=== PATIENT | male | born 1955 | race Caucasian/White ===

== ENCOUNTER → 2018-10-21 15:52 | Outpatient (CLI) | payer BC, SELFPAY ==
--- NOTE | 2018-10-21 16:10 | XR_ITS ---
XR hip LT 2-3V w/pelvis HISTORY: ITS.REASON: MIDLINE LOW BACK PAIN WITH LEFT SIDED SCIATICA ORDERING PHYSICIAN: Yolis Carter APRN PATIENT AGE: 63 years COMPARISON: None FINDINGS: An AP view the pelvis shows mild to moderate osteoarthritic changes of both hips. No fracture or dislocation. No lytic or blastic change. IMPRESSION: Osteoarthritis of the hips
--- NOTE | 2018-10-21 16:10 | XR_ITS ---
EXAM: XR lumbar spine min 4V HISTORY: ITS.REASON: MIDLINE LOW BACK PAIN WITH LEFT SIDED SCIATICA ORDERING PHYSICIAN: Yolis Carter APRN PATIENT AGE: 63 years COMPARISON: None FINDINGS: Normal alignment. No acute fracture or dislocation. There is mild loss of height anteriorly of T12 which may be old. There is degenerative disc disease from T11 to S1 most severe in the lower thoracic and thoracolumbar region. Small anterior osteophytes are present at multiple levels and there is mild facet sclerotic changes at the lumbosacral junction. No lytic or blastic change. IMPRESSION: Degenerative changes as described above. Mild wedging of T12 vertebral body which may be chronic
== END ==
PROVIDERS: PCP Family Medicine; Visit Provider Nurse Practitioner
DX: M54.42 Lumbago with sciatica, left side (principal)
CPT/HCPCS: 72110; 73502

== ENCOUNTER → 2019-11-14 10:40 | Outpatient (CLI) | payer OTHER, SELFPAY ==
--- NOTE | 2019-11-14 10:52 | CT_ITS ---
PROCEDURE: CT ABDOMEN PELVIS WO CON CLINICAL INDICATION: RENAL COLIC Left flank pain and hematuria COMPARISON: No exams were available for comparison TECHNIQUE: Axial images obtained with sagittal and coronal reformats. All CT scans at the facility use one or more dose reduction, viz: automated exposure control, ma/kV adjustment per patient size (including targeted exams where dose is matched to indication, i.e. head), or iterative reconstruction technique. FINDINGS: LOWER THORAX: Coronary artery calcifications are present. Calcified node is present in the right hilum ABDOMEN & PELVIS: There has been a prior cholecystectomy. There are focal low-density changes involving the medial aspect of the left hepatic lobe and may be due to focal fatty infiltration. This area measures approximately 1.3 cm the liver has an otherwise unremarkable appearance. The spleen, and pancreas have an unremarkable appearance. There is mild dilatation of the left renal pelvicaliceal system and left ureter secondary to a 3 mm stone at the left ureterovesical junction. There is mild stranding of the left perinephric and periureteral fat. There is also some stranding of the fat in the lateral conal fascia inferiorly and in the left pelvic region adjacent to the mildly dilated left ureter. There is a 4 cm right renal cyst. In the medial aspect of the left kidney there is a 1.7 cm cyst. The wall is partially calcified. This is an indeterminate lesion of the left kidney. There are no previous studies available for comparison. The adrenal glands are slightly enlarged nonspecific. Unremarkable appendix. There is mild thickening of the descending colon which may be due to nondistention versus colitis. There is diverticulosis of the descending and sigmoid colon but no evidence of diverticulitis. No intestinal obstruction or free air. There is mild kyphosis of the lower thoracic spine with mild osteoarthritis of the hips. Prostate is mildly enlarged at 5 by 3 cm IMPRESSION: 1. 3 mm obstructing stone at the left ureterovesical junction with mild left-sided obstructive uropathy. There is some stranding of the fat in the left lateral conal fascia region and in the left pelvic area possibly related to the obstructing stone. 2. Colonic diverticulosis. There is thickening of the descending and sigmoid colon which may be due to nondistention or colitis. 3. Indeterminate 1.7 cm partially calcified cyst of the left kidney. Suggest follow-up exam with renal protocol without and with contrast to better classify this lesion. There is a benign-appearing cyst of the right kidney. Dictated b Marinelli, Lincoln MD 11/14/2019 11:39 Lincoln Marinelli MD in [place] 11/14/2019 11:39
== END ==
PROVIDERS: PCP Family Medicine; Visit Provider Family Medicine
DX: N23 Unspecified renal colic (principal)
CPT/HCPCS: 74176

== ENCOUNTER → 2019-11-21 10:49 | Outpatient (CLI) | payer OTHER, SELFPAY ==
--- NOTE | 2019-11-21 10:55 | CT_ITS ---
PROCEDURE: CT ABDOMEN PELVIS WO/W CON CLINICAL INDICATION: RENAL CYST Hematuria, complex left renal cyst COMPARISON: CT CT ABDOMEN PELVIS WO CON from 11/14/2019 TECHNIQUE: IV Contrast: 75ML OPTIRAY 350 Oral Contrast None Axial images obtained with sagittal and coronal reformats. All CT scans at the facility use one or more dose reduction, viz: automated exposure control, ma/kV adjustment per patient size (including targeted exams where dose is matched to indication, i.e. head), or iterative reconstruction technique. FINDINGS: LOWER THORAX: Prominent coronary artery calcification is present. There is calcified node in the right hilum. ABDOMEN & PELVIS: Immediate and post enhanced images are obtained of the kidneys. There is a complex left renal cyst containing peripheral slightly coarse calcifications. The cyst measures 1.8 cm and would be classified as a Bosniak 2F minimally complex requiring follow-up. There is no enhancement of the cyst wall and no internal septation. There is a simple appearing cyst involving the lower pole of the right kidney which measures 5.2 cm. No renal or ureteral calculi. No hydronephrosis. The previously noted left UPJ stone is no longer apparent. The stranding of the fat in the lateral conal fascia and in the periureteral region has improved. There is colonic diverticulosis. No evidence of diverticulitis. There is a mild amount of retained colonic feces within the sigmoid and rectal area. Unremarkable appendix. There is mild kyphosis of the lower thoracic spine with degenerative changes in the spine IMPRESSION: 1. Complex left renal cyst containing some coarse peripheral calcification. Bosniak 2 F. Recommend six-month follow-up. 2. Benign-appearing 5.2 cm cyst of the right kidney Bosniak type 1 3. Moderate amount of retained colonic feces with colonic diverticulosis. 4. Left UPJ stone no longer apparent Dictated by: Lincoln Marinelli MD 11/22/2019 10:52 Lincoln Marinelli MD in [facility] 11/22/2019 10:52
[2019-11-21 11:18] LABS: Blood Urea Nitrogen 14 mg/dl (9-20); Estimated Glomerular Filt Rate 114 ml/min (>60); GFR (African American) 138 ML/MIN (>60)
== END ==
PROVIDERS: PCP Family Medicine; Visit Provider Urology
DX: N28.1 Cyst of kidney, acquired (principal)
CPT/HCPCS: 36415; 74178; 82565; 84520; Q9967

== ENCOUNTER → 2019-12-23 07:40 | Outpatient (CLI) | payer OTHER, SELFPAY ==
--- NOTE | 2019-12-23 07:43 | CA_ITS ---
APPROVED REPORT Business Management Professor: STEPHANIE Laterality: Bilateral Study Quality: Good Indications: MELVIN Risk Factors Hypertension: Doppler Spectral Velocity Analysis dICA (R) 118.30/36.90 cm/s dICA (L) 89.40/23.40 cm/s Samy (R) 80.20/26.30 cm/s Samy (L) 105.10/26.10 cm/s pICA (R) 72.00/23.10 cm/s pICA (L) 80.80/20.80 cm/s dCCA (R) 81.00/18.40 cm/s dCCA (L) 92.80/20.00 cm/s pCCA (R) 87.00/16.80 cm/s pCCA (L) 114.90/17.70 cm/s Vert (R) 59.80/11.00 cm/s Vert (L) 63.30/17.60 cm/s ICA/CCA 1.50 ICA/CCA 1.10 Findings The right carotid arterial system appeared to be normal without stenosis of the bulb or internal carotid artery. Duplex evaluation demonstrates stenosis of the left proximal internal carotid artery <20% with PSV <140 cm/sec, EDV <100 cm/sec, and IC/CC Ratio <4.0.Antegrade flow seen bilateral vertebral arteries. Conclusion The right carotid arterial system appeared to be normal without stenosis of the bulb or internal carotid artery. Duplex evaluation demonstrates stenosis of the left proximal internal carotid artery <20% with PSV <140 cm/sec, EDV <100 cm/sec, and IC/CC Ratio <4.0.Antegrade flow seen bilateral vertebral arteries. Electronically signed by : Lincoln Marinelli MD 12/23/2019 15:50:56
== END ==
PROVIDERS: PCP Family Medicine; Visit Provider Nurse Practitioner
DX: Z13.6 Encounter for screening for cardiovascular disorders (principal)
CPT/HCPCS: 93880

== ENCOUNTER → 2020-11-15 14:02 | Outpatient (CLI) | payer OTHER, SELFPAY ==
--- NOTE | 2020-11-15 14:06 | CT_ITS ---
PROCEDURE: CT ABDOMEN PELVIS WO CON CLINICAL INDICATION: ureteral stone/renal cyst COMPARISON: CT CT ABDOMEN PELVIS WO/W CON from 11/21/2019 TECHNIQUE: Axial images obtained with sagittal and coronal reformats. All CT scans at the facility use one or more dose reduction, viz: automated exposure control, ma/kV adjustment per patient size (including targeted exams where dose is matched to indication, i.e. head), or iterative reconstruction technique. FINDINGS: LOWER THORAX: No acute finding ABDOMEN & PELVIS: Prior cholecystectomy. Liver, spleen, and pancreas have an unremarkable appearance. There is mild nodularity of the adrenal glands not significantly changed. 17 mm cyst is present involving the left kidney medially containing some peripheral coarse calcifications not significantly changed. Left renal calcifications are present and felt to represent vascular calcifications. No ureteral calculi evident. No hydronephrosis. 5 cm benign-appearing cyst projects off the lower pole of the right kidney unchanged. No right renal or ureteral calculi. No hydronephrosis. No intestinal obstruction or free air. Unremarkable appendix. There is colonic diverticulosis with no evidence of diverticulitis. Mild prominence of the prostate at 5 x 2.7 cm No pelvic mass or abnormal fluid collection. There is mild kyphosis of the lower thoracic spine. Mild osteoarthritic changes are present involving the hips and spine IMPRESSION: No change with no acute finding. No change partially calcified left renal cyst and benign-appearing 5 cm right renal cyst. No renal or ureteral calculi parent Colonic diverticulosis without diverticulitis Dictated by: Lincoln Marinelli MD 11/15/2020 17:21 Lincoln Marinelli MD in [place] 11/15/2020 17:21
== END ==
PROVIDERS: PCP Family Medicine; Visit Provider Urology
DX: N20.1 Calculus of ureter (principal); N28.1 Cyst of kidney, acquired
CPT/HCPCS: 74176

== ENCOUNTER → 2021-11-18 07:10 | Outpatient (CLI) | payer OTHER, SELFPAY ==
--- NOTE | 2021-11-18 07:28 | CT_ITS ---
FINAL REPORT TECHNIQUE: Axial CT images of the abdomen and pelvis were obtained before and after the administration of IV contrast. Oral contrast was administered.This study was performed with techniques to keep radiation doses as low as reasonably achievable (ALARA). Individualized dose reduction techniques using automated exposure control or adjustment of mA and/or kV according to the patient''s size were employed. CLINICAL HISTORY: renal lesion follow-up COMPARISON: November 15, 2020 FINDINGS: Abdomen: The lung bases are clear. The heart is normal in size. The liver has an unremarkable appearance, without evidence of mass or biliary duct dilatation. The spleen is unremarkable. There is a small nodule in the left adrenal gland favoring an adenoma. The pancreas has an unremarkable appearance. There is a less than 3 mm nonobstructing left kidney stone which is stable. A mass in the medial left kidney measures 17 mm and was previously measured 17 mm with peripheral calcifications. There is a 5 cm cyst in the lower pole of the right kidney which is stable. The aorta is normal in caliber. There is no free fluid or adenopathy. No mass or abnormal fluid collection is seen. There are mild vascular calcifications. Precontrast images demonstrate no evidence of nephrolithiasis. Pelvis: The appendix is normal The urinary bladder is unremarkable. There is sigmoid diverticulosis without evidence of diverticulitis. There is no evidence of bowel obstruction. IMPRESSION: Stable medial left kidney mass. Stable right renal cyst. Reviewed, Interpreted and Dictated by Yohannes Palomino III, MD Transcribed by Karen Vital Authenticated and [facility]
[2021-11-18 08:24] LABS: Blood Urea Nitrogen 14 mg/dl (9-20); Estimated Glomerular Filt Rate 114 ml/min (>60); GFR (African American) 137 ML/MIN (>60)
== END ==
PROVIDERS: PCP Family Medicine; Visit Provider Urology
DX: N28.9 Disorder of kidney and ureter, unspecified (principal)
CPT/HCPCS: 36415; 74178; 82565; 84520; Q9967

== ENCOUNTER → 2021-12-11 07:08 | Outpatient (CLI) | payer OTHER, SELFPAY ==
[2021-12-10 20:37] LABS: Alanine Aminotransferase 27 U/L (12-78); Albumin Level 3.7 g/dl (3.5-5.0); Albumin/Globulin Ratio 1.9 (1.1-1.8); Alkaline Phosphatase 77 U/L (38-126); Anion Gap 8.8 mEq/L (5-15); Aspartate Amino Transferase 24 U/L (17-59); Blood Urea Nitrogen 12 mg/dl (9-20); Calcium 9.1 mg/dl (8.4-10.2); Carbon Dioxide 27 mmol/L (22.0-30.0); Chloride 105 mmol/L (98-107); Chol/HDL Ratio 4.2 (1-3.5); Cholesterol 154 mg/dl (140-200); Estimated Glomerular Filt Rate 114 ml/min (>60); GFR (African American) 137 ML/MIN (>60); Globulin 1.9 g/dL (1.3-3.2); Glucose 123 mg/dl (74-100); HDL Cholesterol 37 mg/dl (40-60); Potassium 3.8 mmoL/L (3.5-5.1); Sodium 137 mmol/L (136-145); Total Protein,Serum 5.6 g/dl (6.3-8.2); Triglycerides 201 mg/dl (30-150); VLDL Cholesterol 40 mg/dL (0-40)
[2021-12-10 20:40] LABS: Basophils % 0.4 % (0.1-2.0); Eosinophils # 0.2 K/mm3 (0.0-0.4); Eosinophils % 2.5 % (0.1-12.0); Hematocrit 40.9 % (42.0-52.0); Hemoglobin 12.7 g/dL (14.1-18.0); Lymphocytes # 2.5 K/mm3 (0.7-4.5); Lymphocytes % 27.9 % (10-50); Mean Corpuscular HGB Conc 31.2 g/dL (31.8-35.4); Mean Corpuscular Hemoglobin 29.9 pg (27.0-31.2); Mean Corpuscular Volume 96.1 fl (80-94); Mean Platelet Volume 9.9 fl (7.4-10.4); Monocytes # 0.4 K/mm3 (0.1-1.0); Neutrophils # 5.8 K/mm3 (1.8-7.8); Neutrophils % 65.2 % (37.0-80.0); Platelet Count 346 K/mm3 (142-424); Red Blood Count 4.26 M/mm3 (4.60-6.20); Red Cell Distribution Width 13.8 % (11.5-17.5); White Blood Count 8.8 K/mm3 (4.8-10.8)
[2021-12-10 21:08] LABS: Prostate Specific Ag Screen 0.2 ng/ml (0.0-4.0); Thyroid Stimulating Hormone 0.37 uIU/mL (0.465-4.68)
[2021-12-12 08:23] LABS: Direct LDL Cholesterol 83 mg/dL (100-129)
== END ==
PROVIDERS: PCP Nurse Practitioner; Visit Provider Nurse Practitioner
DX: E11.9 Type 2 diabetes mellitus without complications (principal); I10 Essential (primary) hypertension; Z12.5 Encounter for screening for malignant neoplasm of prostate; Z79.84 Long term (current) use of oral hypoglycemic drugs
CPT/HCPCS: 80053; 80061; 84443; 85025; G0103

== ENCOUNTER → 2022-06-09 23:24 | Outpatient (CLI) | payer OTHER, SELFPAY ==
[2022-06-09 18:38] LABS: Alanine Aminotransferase 21 U/L (12-78); Albumin Level 4.3 g/dl (3.5-5.0); Alkaline Phosphatase 76 U/L (38-126); Anion Gap 13.2 mEq/L (5-15); Aspartate Amino Transferase 25 U/L (17-59); Bilirubin,Total 1.4 mg/dl (0.2-1.3); Blood Urea Nitrogen 16 mg/dl (9-20); Calcium 9.5 mg/dl (8.4-10.2); Carbon Dioxide 27 mmol/L (22.0-30.0); Chloride 99 mmol/L (98-107); Chol/HDL Ratio 4.3 (1-3.5); Cholesterol 188 mg/dl (140-200); Estimated Glomerular Filt Rate 113 ml/min (>60); GFR (African American) 137 ML/MIN (>60); Globulin 2.1 g/dL (1.3-3.2); Glucose 113 mg/dl (74-100); HDL Cholesterol 44 mg/dl (40-60); Potassium 4.2 mmoL/L (3.5-5.1); Sodium 135 mmol/L (136-145); Total Protein,Serum 6.4 g/dl (6.3-8.2); Triglycerides 240 mg/dl (30-150); VLDL Cholesterol 48 mg/dL (0-40)
[2022-06-09 18:41] LABS: Hemoglobin A1C 5.7 % (4.0-6.0)
[2022-06-09 18:56] LABS: Creatinine,Urine Random 36 mg/dL (Not Estab.)
[2022-06-09 19:08] LABS: Thyroid Stimulating Hormone 0.41 uIU/mL (0.465-4.68)
[2022-06-09 19:23] LABS: Microalbumin < 6.000 mg/L (0-16.7)
== END ==
PROVIDERS: PCP Nurse Practitioner; Visit Provider Nurse Practitioner
DX: E11.9 Type 2 diabetes mellitus without complications (principal); I10 Essential (primary) hypertension; Z79.84 Long term (current) use of oral hypoglycemic drugs; Z79.899 Other long term (current) drug therapy
CPT/HCPCS: 80053; 80061; 82043; 82570; 83036; 84443

== ENCOUNTER → 2022-12-09 11:00 | Outpatient (CLI) | payer OTHER, SELFPAY ==
[2022-12-09 18:36] LABS: Alanine Aminotransferase 25 U/L (12-78); Albumin Level 4.1 g/dl (3.5-5.0); Albumin/Globulin Ratio 1.9 (1.1-1.8); Alkaline Phosphatase 73 U/L (38-126); Aspartate Amino Transferase 26 U/L (17-59); Bilirubin,Total 1.4 mg/dl (0.2-1.3); Blood Urea Nitrogen 15 mg/dl (9-20); Calcium 9.4 mg/dl (8.4-10.2); Carbon Dioxide 27 mmol/L (22.0-30.0); Chloride 102 mmol/L (98-107); Chol/HDL Ratio 4.2 (1-3.5); Cholesterol 155 mg/dl (140-200); Estimated Glomerular Filt Rate 85 ml/min (>60); GFR (African American) 102 ML/MIN (>60); Globulin 2.2 g/dL (1.3-3.2); Glucose 113 mg/dl (74-100); HDL Cholesterol 37 mg/dl (40-60); Sodium 139 mmol/L (136-145); Total Protein,Serum 6.3 g/dl (6.3-8.2); Triglycerides 196 mg/dl (30-150); VLDL Cholesterol 39 mg/dL (0-40)
[2022-12-09 18:46] LABS: Hemoglobin A1C 5.9 % (4.0-6.0)
[2022-12-09 18:47] LABS: Direct LDL Cholesterol 88.27 mg/dL (100-129)
== END ==
PROVIDERS: PCP Nurse Practitioner; Visit Provider Nurse Practitioner
DX: E11.9 Type 2 diabetes mellitus without complications (principal); E78.5 Hyperlipidemia, unspecified; I10 Essential (primary) hypertension; Z79.84 Long term (current) use of oral hypoglycemic drugs
CPT/HCPCS: 80053; 80061; 83036

== ENCOUNTER → 2022-12-11 10:30 | Outpatient (CLI) | payer OTHER, SELFPAY ==
[2022-12-11 11:11] LABS: Prostate Specific Ag Screen 0.2 ng/ml (0.0-4.0)
== END ==
LOC: LAB.DROPOF 01-06 13:47
PROVIDERS: PCP Nurse Practitioner; Visit Provider Nurse Practitioner
DX: Z00.00 Encounter for general adult medical examination without abnormal findings (principal); Z12.5 Encounter for screening for malignant neoplasm of prostate
CPT/HCPCS: G0103

== ENCOUNTER 2023-06-02 19:21 | Outpatient (CLI) | payer OTHER, SELFPAY ==
[2023-06-02 18:58] LABS: Basophils % 0.4 % (0.1-2.0); Eosinophils # 0.1 K/mm3 (0.0-0.4); Eosinophils % 1.4 % (0.1-12.0); Hematocrit 42.5 % (42.0-52.0); Hemoglobin 13.5 g/dL (14.1-18.0); Lymphocytes # 2.5 K/mm3 (0.7-4.5); Lymphocytes % 25.3 % (10-50); Mean Corpuscular HGB Conc 31.8 g/dL (31.8-35.4); Mean Corpuscular Volume 97.6 fl (80-94); Monocytes # 0.4 K/mm3 (0.1-1.0); Monocytes % 4.5 % (1.7-9.3); Neutrophils # 6.8 K/mm3 (1.8-7.8); Neutrophils % 68.4 % (37.0-80.0); Platelet Count 337 K/mm3 (142-424); Red Blood Count 4.35 M/mm3 (4.60-6.20); Red Cell Distribution Width 13.8 % (11.5-17.5); White Blood Count 9.9 K/mm3 (4.8-10.8)
[2023-06-02 19:27] LABS: Alanine Aminotransferase 23 U/L (12-78); Albumin Level 4.2 g/dl (3.5-5.0); Albumin/Globulin Ratio 1.9 (1.1-1.8); Alkaline Phosphatase 81 U/L (38-126); Anion Gap 12.2 mEq/L (5-15); Aspartate Amino Transferase 23 U/L (17-59); Bilirubin,Total 1.6 mg/dl (0.2-1.3); Blood Urea Nitrogen 14 mg/dl (9-20); Calcium 9.8 mg/dl (8.4-10.2); Carbon Dioxide 28 mmol/L (22.0-30.0); Chloride 104 mmol/L (98-107); Chol/HDL Ratio 4.9 (1-3.5); Cholesterol 186 mg/dl (140-200); Estimated Glomerular Filt Rate 97 ml/min (>60); GFR (African American) 117 ML/MIN (>60); Globulin 2.2 g/dL (1.3-3.2); Glucose 130 mg/dl (74-100); HDL Cholesterol 38 mg/dl (40-60); Potassium 4.2 mmoL/L (3.5-5.1); Sodium 140 mmol/L (136-145); Total Protein,Serum 6.4 g/dl (6.3-8.2); Triglycerides 145 mg/dl (30-150); VLDL Cholesterol 29 mg/dL (0-40)
[2023-06-02 19:38] LABS: Direct LDL Cholesterol 116.06 mg/dL (100-129)
[2023-06-02 20:00] LABS: Thyroid Stimulating Hormone 0.53 uIU/mL (0.465-4.68)
[2023-06-02 20:19] LABS: Vitamin B12 232 pg/mL (239-931)
[2023-06-02 21:25] LABS: Creatinine,Urine Random 163 mg/dL (Not Estab.)
[2023-06-02 21:32] LABS: Microalbumin/Creatinine Ratio 5.6
[2023-06-02 23:27] LABS: Hemoglobin A1C 5.9 % (4.0-6.0)
== END 2023-06-02 23:59 ==
LOC: LAB.DROPOF 19:22
PROVIDERS: PCP Nurse Practitioner; Visit Provider Nurse Practitioner
DX: E11.9 Type 2 diabetes mellitus without complications (principal); I10 Essential (primary) hypertension; E78.5 Hyperlipidemia, unspecified; E66.9 Obesity, unspecified; Z68.29 Body mass index [BMI] 29.0-29.9, adult; Z79.84 Long term (current) use of oral hypoglycemic drugs; E53.8 Deficiency of other specified B group vitamins
CPT/HCPCS: 80053; 80061; 82043; 82306; 82570; 82607; 83036; 84443; 85025

== ENCOUNTER 2023-12-01 10:28 | Outpatient (CLI) | payer OTHER, SELFPAY ==
[2023-12-01 22:23] LABS: Alanine Aminotransferase 26 U/L (12-78); Albumin Level 4.3 g/dl (3.5-5.0); Albumin/Globulin Ratio 1.6 (1.1-1.8); Alkaline Phosphatase 85 U/L (38-126); Anion Gap 11.1 mEq/L (5-15); Aspartate Amino Transferase 25 U/L (17-59); Bilirubin,Total 1.7 mg/dl (0.2-1.3); Blood Urea Nitrogen 10 mg/dl (9-20); Calcium 9.9 mg/dl (8.4-10.2); Carbon Dioxide 25 mmol/L (22.0-30.0); Chloride 104 mmol/L (98-107); Chol/HDL Ratio 4.1 (1-3.5); Cholesterol 180 mg/dl (140-200); Estimated Glomerular Filt Rate 113 ml/min (>60); GFR (African American) 137 ML/MIN (>60); Globulin 2.7 g/dL (1.3-3.2); Glucose 121 mg/dl (74-100); HDL Cholesterol 44 mg/dl (40-60); Potassium 4.1 mmoL/L (3.5-5.1); Sodium 136 mmol/L (136-145); Triglycerides 166 mg/dl (30-150); VLDL Cholesterol 33 mg/dL (0-40)
[2023-12-01 22:40] LABS: Hemoglobin A1C 6.2 % (4.0-6.0)
[2023-12-01 23:14] LABS: Vitamin B12 562 pg/mL (239-931)
== END 2023-12-01 23:59 | disposition home or self-care (01) ==
LOC: LAB.DROPOF 12-02 13:40
PROVIDERS: PCP Nurse Practitioner; Visit Provider Nurse Practitioner
DX: E11.9 Type 2 diabetes mellitus without complications (principal); Z79.84 Long term (current) use of oral hypoglycemic drugs; I10 Essential (primary) hypertension; E78.5 Hyperlipidemia, unspecified
CPT/HCPCS: 80053; 80061; 82607; 83036

== ENCOUNTER 2024-06-02 11:11 | Outpatient (CLI) | payer OTHER, SELFPAY ==
[2024-06-02 17:57] LABS: Microscopic, Urine URINE MICROSCOPIC (MICROSCOPIC)
[2024-06-02 18:56] LABS: Basophils % 0.3 % (0.1-2.0); Eosinophils # 0.2 K/mm3 (0.0-0.4); Hematocrit 37.9 % (42.0-52.0); Hemoglobin 12.4 g/dL (14.1-18.0); Lymphocytes # 2.4 K/mm3 (0.7-4.5); Lymphocytes % 25.3 % (10-50); Mean Corpuscular HGB Conc 32.7 g/dL (31.8-35.4); Mean Corpuscular Hemoglobin 28.9 pg (27.0-31.2); Mean Corpuscular Volume 88.3 fl (80-94); Mean Platelet Volume 10.6 fl (7.4-10.4); Monocytes # 0.6 K/mm3 (0.1-1.0); Monocytes % 6.6 % (1.7-9.3); Neutrophils # 6.2 K/mm3 (1.8-7.8); Neutrophils % 65.5 % (37.0-80.0); Platelet Count 267 K/mm3 (142-424); Red Blood Count 4.29 M/mm3 (4.60-6.20); Red Cell Distribution Width 13.1 % (11.5-17.5); White Blood Count 9.5 K/mm3 (4.8-10.8)
[2024-06-02 20:46] LABS: Appearance,Urine CLEAR (Clear); Bilirubin,Urine Negative (Negative); Blood, Urine TRACE-I (Negative); Color,Urine YELLOW (Yellow); Glucose,Urine (UA) Negative (Negative); Ketones,Urine Negative (Negative); Leukocyte Esterase,Urine Negative (Negative); Nitrate,Urine Negative (Negative); Protein,Urine Negative (Negative); Specific Gravity, Urine 1.025 (1.005-1.030); Urobilinogen,Urine 0.2 EU/dl (0.2)
[2024-06-02 21:03] LABS: Alanine Aminotransferase 22 U/L (12-78); Albumin Level 4.1 g/dl (3.5-5.0); Albumin/Globulin Ratio 2.2 (1.1-1.8); Alkaline Phosphatase 73 U/L (38-126); Anion Gap 11.5 mEq/L (5-15); Aspartate Amino Transferase 19 U/L (17-59); Bilirubin,Total 1.7 mg/dl (0.2-1.3); Blood Urea Nitrogen 13 mg/dl (9-20); Calcium 9.5 mg/dl (8.4-10.2); Carbon Dioxide 26 mmol/L (22.0-30.0); Chloride 103 mmol/L (98-107); Chol/HDL Ratio 4.5 (1-3.5); Cholesterol 148 mg/dl (140-200); Estimated Glomerular Filt Rate 96 ml/min (>60); GFR (African American) 117 ML/MIN (>60); Globulin 1.9 g/dL (1.3-3.2); Glucose 104 mg/dl (74-100); HDL Cholesterol 33 mg/dl (40-60); Potassium 3.5 mmoL/L (3.5-5.1); Sodium 137 mmol/L (136-145); Triglycerides 119 mg/dl (30-150); VLDL Cholesterol 24 mg/dL (0-40)
[2024-06-02 21:14] LABS: HIV Combo NEGATIVE (Negative)
[2024-06-02 21:22] LABS: Hepatitis C Ab Qual. W/ RFX NEGATIVE (Negative)
[2024-06-02 21:36] LABS: Prostate Specific Ag Screen 0.2 ng/ml (0.0-4.0)
[2024-06-02 21:40] LABS: Microalbumin/Creatinine Ratio 7.7
[2024-06-02 21:55] LABS: Vitamin B12 393 pg/mL (239-931)
[2024-06-02 22:04] LABS: Creatinine,Urine Random 177 mg/dL (Not Estab.)
[2024-06-02 22:46] LABS: Squamous Epithelial Cell,Urine Occasional #/hpf (0-5); WBC,Urine Occasional #/hpf (0-3)
[2024-06-02 22:47] LABS: Bacteria,Urine Trace /lpf
[2024-06-04 09:14] LABS: HBsAg Screen Negative (Negative); HCV Ab Non Reactive (Non Reactive); Hep A Ab, IGM Negative (Negative); Hep B Core Ab, IgM Negative (Negative)
== END 2024-06-02 23:59 | disposition home or self-care (01) ==
LOC: LAB.DROPOF 06-03 11:12
PROVIDERS: PCP Nurse Practitioner; Visit Provider Nurse Practitioner
DX: I10 Essential (primary) hypertension (principal); E11.9 Type 2 diabetes mellitus without complications; E78.5 Hyperlipidemia, unspecified; E66.9 Obesity, unspecified; R31.9 Hematuria, unspecified; Z12.5 Encounter for screening for malignant neoplasm of prostate; Z13.0 Encounter for screening for diseases of the blood and blood-forming organs and certain disorders involving the immune mechanism
CPT/HCPCS: 80053; 80061; 80074; 81001; 82043; 82570; 82607; 84443; 85025; 86803; 87389; G0103

== ENCOUNTER 2024-09-12 11:29 | Outpatient (CLI) | payer OTHER, SELFPAY ==
[2024-09-12 17:58] LABS: Microscopic, Urine URINE MICROSCOPIC (MICROSCOPIC)
[2024-09-12 18:15] LABS: Basophils % 0.4 % (0.1-2.0); Eosinophils # 0.2 Kmm3 (0.0-0.4); Eosinophils % 2.2 % (0.1-12.0); Hematocrit 34.6 % (42.0-52.0); Hemoglobin 10.7 g/dL (14.1-18.0); Immature Granulocytes # 0.02 10^3uL; Immature Granulocytes % 0.3 %; Lymphocytes # 1.7 K/mm3 (0.7-4.5); Lymphocytes % 22.7 % (10-50); Mean Corpuscular HGB Conc 30.9 g/dL (31.8-35.4); Mean Corpuscular Hemoglobin 28.9 pg (27.0-31.2); Mean Corpuscular Volume 93.5 fl (80-94); Mean Platelet Volume 10.5 fl (7.4-10.4); Monocytes # 0.6 K/mm3 (0.1-1.0); Monocytes % 7.8 % (1.7-9.3); Neutrophils % 66.6 % (37.0-80.0); Nucleated Red Blood Cells # 0 10^3/uL; Nucleated Red Blood Cells % 0 %; Platelet Count 240 K/mm3 (142-424); Red Cell Distribution Width 13.7 % (11.5-17.5); Red Cell Distribution Width-SD 46.5 fL; White Blood Count 7.4 K/mm3 (4.8-10.8)
[2024-09-12 19:13] LABS: Appearance,Urine CLEAR (Clear); Bilirubin,Urine Negative (Negative); Blood, Urine Negative (Negative); Color,Urine YELLOW (Yellow); Glucose,Urine (UA) Negative (Negative); Ketones,Urine Negative (Negative); Leukocyte Esterase,Urine Negative (Negative); Nitrate,Urine Negative (Negative); Protein,Urine TRACE (Negative); Specific Gravity, Urine 1.025 (1.005-1.030); Urobilinogen,Urine 0.2 EU/dl (0.2)
[2024-09-12 19:20] LABS: Amorphous Sediment,Urine 2+ /lpf; Bacteria,Urine 3+ /lpf; RBC,Urine Occasional #/hpf (0-3); Squamous Epithelial Cell,Urine Occasional #/hpf (0-5)
[2024-09-12 20:10] LABS: Albumin Level 4.1 g/dl (3.5-5.0); Chloride 107 mmol/L (98-107)
[2024-09-12 20:11] LABS: Potassium 4.4 mmoL/L (3.5-5.1); Sodium 139 mmol/L (136-145)
[2024-09-12 20:13] LABS: Alanine Aminotransferase 21 U/L (12-78); Anion Gap 9.4 mEq/L (5-15); Aspartate Amino Transferase 18 U/L (17-59); Blood Urea Nitrogen 18 mg/dl (9-20); Carbon Dioxide 27 mmol/L (22.0-30.0); Estimated Glomerular Filt Rate 84 ml/min (>60); GFR (African American) 102 ML/MIN (>60)
[2024-09-12 20:14] LABS: Alkaline Phosphatase 78 U/L (38-126); Calcium 9.7 mg/dl (8.4-10.2); Globulin 2.1 g/dL (1.3-3.2); Glucose 127 mg/dl (74-100); Total Protein,Serum 6.2 g/dl (6.3-8.2)
[2024-09-12 20:18] LABS: NT Pro Brain Natriuretic Pep. 4540 pg/mL (0-125)
--- OUTSIDE RECORDS SUMMARY | 2024-09-13 13:30 | XMS_ITS | Encounter Summary ---
Author Organization [place] [address] Care Team Providers Care Chief Of Staff Doctor Name Role Phone Kris Ramos Primary Care Provider [phone] Reason for Referral * Consultation (Routine) - Pending Review Specialty Diagnoses / Procedures Referred By Nia t Referred To Contact Cardiology Diagnoses LVH (left ventricular hypertrophy) Acute diastolic congestive heart failure (HCC) Procedures DE OFFICE/OUTPATIENT NEW MODERATE MDM 45 MINUTES Nixon Sanchez APRN [address] [place] [address] Phone: tel: fax: [facility] [address] [facility] [place] [address] [place] [address] Phone: tel: fax: Referral ID Status Reason Start Date Expiration Date V isits Requested Visits Authorized [id number] Pending Review 09/13/2024 09/13/2025 99 99 Question Answer Requested Services Amyloidosis Comments Possible cardiac amyloidosis or hypertrophic cardiomyopathy noted on cardiac MRI. Pt with CHF Pt tells me his insurance is changing and he may need to postpone appt until his insurance has been verified. Reason for Visit * Reason Comments Follow-up Edema legs and ankles * Consultation (Routine) - Pending Review Specialty Diagnoses / Procedures Referred By Nia araujo Referred To Contact Internal Medicine-Cardiovascular Disease / Cardiology Diagnoses Abnormal electrocardiogram-echo 01/12 Procedures NEW PATIENT Kris Ramos [address] [facility] [address] [place] [address] Phone: tel: fax: Loly Golden, [address] [place] [address] Phone: tel: fax: Referral ID Status Reason Start Date Expiration Date V isits Requested Visits Authorized [id number] Pending Review 01/15/2024 01/14/2025 99 99 Encounter Details Date Type Department Care Team (Late st Contact Info) Description 09/13/2024 1:30 PM EDT Office Visit [facility] [address] [address] Nixon Sanchez, AQUATIC PERFORMER [address] [place] [address] Primary hypertension (Primary Dx); LVH (left ventricular hypertrophy); Acute diastolic congestive heart failure (HCC) Social History Tobacco Use Types Packs/Day Years Used Date Smoking Tobacco: Never Smokeless Tobacco: Never Sex and Gender Information Value Date Recorded Sex Assigned at Not on file Legal Sex Male 2:53 AM EDT Gender Identity Not on file Sexual Orientation Not on file documented as of this encounter Last Filed Vital Signs Vital Sign Reading Time Taken Comments Blood Pressure 136/60 09/13/2024 1:27 PM EDT Pulse 90 09/13/2024 1:27 PM EDT Temperature - - Respiratory Rate - - Oxygen Saturation 97% 09/13/2024 1:27 PM EDT Inhaled Oxygen Concentration - - Weight 96.6 kg (213 lb) 09/13/2024 1:27 PM EDT Height 179.8 cm (5' 10.8 ) 09/13/2024 1:27 PM ED T Body Mass Index 29.88 09/13/2024 1:27 PM EDT documented in this encounter Patient Instructions * Attachments The following attachments cannot be sent through Care Everywhere. * Heart failure (Azeri) documented in this encounter Progress Notes * Nixon Sanchez, AQUATIC PERFORMER - 09/13/2024 1:30 PM EDT Heart and Vascular Office Visit Primary sales representative graphic art: Loly Golden D.O. History of Present Illness Ben Jackson is a 69 y.o. male with PMHx including but not limited to moderate to severe LVH, HTN,DM. Ben Jackson returned to the office for follow up. C/O BLE edema progressively worse. Pt started on Lasix 40 mg today by PCP. No CP. No orthopnea. No palpitations. No lightheadedness, dizziness or syncope. Pt referred to GI regarding elevated Bilirubin and referred to hematology for anemia by PCP. Review of Systems Denies chest pain, dyspnea/orthopnea, cough, weight changes, palpitations, dizziness, syncope, fever/chills, abdominal pain, N/V, melena Current Outpatient Medications: carvediloL (COREG) 25 mg Oral Tablet, Take 1 Tablet by mouth 2 times daily., Disp: 180 Tablet, Rfl:3 cyanocobalamin 1,000 mcg Oral Tablet, Take 1,000 mcg by mouth., Disp: , Rfl: fUROsemide (LASIX) 40 mg Oral Tablet, , Disp: , Rfl: losartan (COZAAR) 50 mg Oral Tablet, Take 50 mg by mouth 2 times daily., Disp: , Rfl: metFORMIN (GLUCOPHAGE) 1,000 mg Oral Tablet, Take 1,000 mg by mouth 2 times daily (with meals)., Disp: , Rfl: Past medical history, social history and family history reviewed and updated 09/13/2024 Labs, tests and procedures reviewed and updated 09/13/2024 Vital Signs Vitals: 09/13/24 1327 BP: 136/60 Pulse: 90 SpO2: 97% Weight: 213 lb (96.6 kg) Height: 5' 10.8 (1.798 m) Body mass index is 29.88 kg/m??. Physical exam Constitutional: Well developed, no acute distress, non-toxic appearance Neck: normal range of motion, no tenderness, supple. Respiratory: no wheezes or rales, unlabored breathing, and diminished in basis Cardiovascular: RRR, S1 & S2 normal, no obvious M/R/G, No bruit, JVP normal. 2+ edema, +2 radial pulses Gastrointestinal: not examined Musculoskeletal: Normal range of motion. Skin: skin warm and dry Neurologic: no obvious focal abnormalities Cardiac Studies ECHOCARDIOGRAM -echo on 01/13/24: EF 60% with no WMA. Moderate to severe increased LV wall thickness. Septum measures 1.8 cm. RVSF normal. LA mildly enlarged. Mild MR and TR. Proximal ascending aorta mildly dilated. STRESS TEST [facility] Cardiac MRI was done after his visit on 02/29/2024. His left ventricular ejection fraction was calculated at 51%. Right ventricular ejection fraction was estimated at 53%. There was mild concentric LVH with highest thickness measured at 2.1 cm. Normal wall motion. There was some late gadolinium enhancement etiology such as cardiac amyloidosis as well as hypertrophic cardiomyopathy can be considered. Assessment and Plan Acute diastolic CHF -Pt started on Lasix 40 mg daily today. Pt not interested in increasing Lasix to BID at this time. He feels like has have to go to the bathroom too much after receiving his first dose. -Recommended daily wt and Na restriction. -Continue coreg 25 mg daily and Losartan 50 mg BID LVH -per echo in Jan 2024 and cardiac MRI Feb 2024. -refer pt for amyloid work up with [facility] Hypertension -Coreg 25 mg BID -Losartan 50 mg BID -Stable on current therapy at 136/60 Diabetes -hgbA1c 7.9 on 10/11/13 -hgbA1c 5.8 on 06/16/24 -per PCP PLAn Pt in the middle of switching insurance. Will put in referral to HF for amyloid work up. Pt may need to reschedule if insurance is not set up in time. Started lasix 40 mg daily today. Pt to follow up with PCP in one week. Optimize GDMT on follow up, consider adding Farxiga 10 mg and aldactone 25 mg on follow up pending labs in one week. - Reinforced heart healthy diet and regular aerobic exercise - RTO 4 week - Call for questions or concerns prior to next office visit Nixon Reyes APRN [facility] [place] documented in this encounter Miscellaneous Notes * Addendum Note - Nixon Sanchez APRN - 09/13/2024 1:30 PM EDTAddended by: NIXON SANCHEZ on: 09/13/2024 02:38 PM Modules accepted: Orders documented in this encounter Plan of Treatment Upcoming Encounters Date Type Department Care Team (Late st Contact Info) Description 10/17/2024 2:30 PM EDT Office Visit [facility] [address] [address] Nixon Sanchez APRN [address] [place] [address] [place] [address] 12/12/2024 11:00 AM EDT Office Visit [facility] [address] [place] [address] Loly Golden DO [address] [place] [address] Scheduled Referrals Name Type Priority Associated Diagnoses Orde r Schedule AMB REFERRAL TO [facility] Outpatient Referral Routine LVH (left ventricular hypertrophy) Acute diastolic congestive heart failure (HCC) Ordered: 09/13/2024 documented as of this encounter Visit Diagnoses Diagnosis Primary hypertension- Primary Unspecified essential hypertension LVH (left ventricular hypertrophy) Cardiomegaly Acute diastolic congestive heart failure (HCC) Acute diastolic heart failure documented in this encounter Historical Medications * This list may reflect changes made after this encounter. Medication Sig Dispense Quantity Refills Last Filled Start D ate End Date fUROsemide (LASIX) 40 mg Oral Tablet 09/12/2024 added in this encounter Care Teams Chief Of Staff Doctor Relationship Specialty Start Date End Date Kris Ramos [address] [facility] [address] [place] [address] PCP - General Family Medicine 10/17/13 documented as of this encounter
--- OUTSIDE RECORDS SUMMARY | 2024-09-13 15:23 | XMS_ITS | Encounter Summary ---
Author Organization [place] [address] Care Team Providers Care Lead Caster Name Role Phone Kris Ramos Primary Care Provider [phone] Encounter Details Date Type Department Care Team (Late st Contact Info) Description 02/19/2021 Lab Requisition [facility] [place] [address] Kenan Kelly MD [address] [place] [address] Encounter for screening for malignant neoplasm of colon; Diverticulosis of large intestine without perforation or abscess without bleeding; Polyp of colon Social History Tobacco Use Types Packs/Day Years Used Date Smoking Tobacco: Never Assessed Sex and Gender Information Value Date Recorded Sex Assigned at Not on file Legal Sex Male 2:53 AM EDT Gender Identity Not on file Sexual Orientation Not on file documented as of this encounter Plan of Treatment Upcoming Encounters Date Type Department Care Team (Late st Contact Info) Description 10/17/2024 2:30 PM EDT Office Visit [facility] [address] [place] [address] Juliana Mistry APRN [address] [facility] [place] [address] 12/12/2024 11:00 AM EDT Office Visit [facility] [address] [place] [address] Loly Golden, DO [address] [place] [address] documented as of this encounter Procedures Procedure Name Priority Date/Time Associated Diagnosis Comments PATHOLOGY TISSUE REQUEST Routine 02/19/2021 2:14 PM EST Encounter for screening for malignant neoplasm of colon Diverticulosis of large intestine without perforation or abscess without bleeding Polyp of colon documented in this encounter Results * PATHOLOGY TISSUE REQUEST (02/19/2021 2:14 PM EST) CASE REPORT Surgical Pathology Case: [id number] Authorizing Provider: Kenan Kelly MD Collected: 02/19/2021 1414 Ordering Location: [facility] Received: 02/20/2021 0636 Pathologist: Aleksandr Beltrán MD Specimen: Large Intestine, Right/Ascendin g Colon 02/21/2021 10:10 AM EST [facility] FINAL DIAGNOSIS Ascending Colon Polyps x 2: - Tubular Adenomas, Negative For High-Grade Dysplasia. 02/21/2021 10:10 AM EST [facility] at 1010 EST GROSS DESCRIPTION Received in formalin, labeled with patient's name and ascending colon polyps 2 are multiple fragments of macias-white friable tissue, ranging from 0.3-0.6 cm. The tissue is submitted in toto in one cassette. REGGIE Lira PA(ASCP) 02/20/2021 7:33 AM 02/21/2021 10:10 AM EST [facility] MICROSCOPIC DESCRIPTION Microscopic examination is performed and the findings corroborate the diagnosis. 02/21/2021 10:10 AM EST [facility] EMBEDDED IMAGES 02/21/2021 10:10 AM EST [facility] Tissue ASCENDING COLON STRUCTURE / Unknown 02/19/2021 2:14 PM EST 02/20/2021 6:36 AM EST Kenan Kelly MD PATHOLOGY ORDERABLES Final Result [facility] [address] [place] [address] [address] documented in this encounter Visit Diagnoses Diagnosis Encounter for screening for malignant neoplasm of colon Special screening for malignant neoplasms, colon Diverticulosis of large intestine without perforation or abscess without bleeding Diverticulosis of colon (without mention of hemorrhage) Polyp of colon Benign neoplasm of colon documented in this encounter Care Teams Lead Caster Relationship Specialty Start Date End Date Kris Ramos [address] [place] [address] [address] [facility] [address] PCP - General Family Medicine 10/17/13 documented as of this encounter
--- OUTSIDE RECORDS SUMMARY | 2024-09-13 15:23 | XMS_ITS | Clinical Summary ---
Author Organization [facility] Address [address] [place] [address] Care Team Providers Care Improvement Lead Name Role Phone Unavailable Primary Care Provider Unavailabl e Source Comments This information has been disclosed to you from confidential records protectedfrom disclosure by state law. You shall make no further disclosure of thisinformation without the specific, written, and informed release of theindividual to whom it pertains, or as otherwise permitted by law. A generalauthorization for the release of medical or other information is not sufficientfor the purposes of therelease of HIV test results or diagnoses. [id number] Social History Tobacco Use Types Packs/Day Years Used Date Smoking Tobacco: Never Assessed Sex and Gender Information Value Date Recorded Sex Assigned at Not on file Legal Sex Male 11:13 PM EST Gender Identity Not on file Sexual Orientation Not on file Plan of Treatment Not on file Insurance SUREST
--- OUTSIDE RECORDS SUMMARY | 2024-09-13 15:23 | XMS_ITS | Clinical Summary ---
Author Organization [facility] Address [address] [facility] [address] [place] [address] Phone Care Team Providers Care Home Health Assistant Name Role Phone Kris Ramos Primary Care Provider [phone] Allergies Active Allergy Reactions Criticality Noted Date Comments Adhesive Tape-Silicones Hives 05/10/2019 Red Dye Hives,Itching 09/13/2024 Medications losartan (COZAAR) 50 mg Oral Tablet Take 50 mg by mouth 2 times daily. Active metFORMIN (GLUCOPHAGE) 1,000 mg Oral Tablet Take 1,000 mg by mouth 2 times daily (with meals). Active cyanocobalamin 1,000 mcg Oral Tablet Take 1,000 mcg by mouth. Active carvediloL (COREG) 25 mg Oral Tablet Take 1 Tablet by mouth 2 times daily. 180 Tablet 3 06/27/2024 Active fUROsemide (LASIX) 40 mg Oral Tablet 09/12/2024 Active Active Problems Problem Noted Date Diagnosed Date Primary hypertension 09/13/2024 LVH (left ventricular hypertrophy) 09/13/2024 Encounters Date Type Department Care Team Description 09/13/2024 1:30 PM EDT Office Visit [facility] [address] [place] [address] Juliana Mistry APRN Primary hypertension (Primary Dx); LVH (left ventricular hypertrophy); Acute diastolic congestive heart failure (HCC) 09/13/2024 [facility]phone [facility] [place] [address] Brandee Eddy APRN New Patient Heme (New Pt Referred by: Mica Carter DX: Anemia, unspecified type) 09/12/2024 Travel 06/27/2024 2:30 PM EDT Office Visit [facility] [address] [place] [address] Loly Golden DO Left ventricular hypertrophy (Primary Dx); Uncontrolled hypertension; Essential hypertension 06/27/2024 Orders Only [facility] [address] [place] [address] Elissa House MA 06/26/2024 Travel from Last 3 Months Medical History Medical History Date Comments Primary hypertension 09/13/2024 LVH (left ventricular hypertrophy) 09/13/2024 Social History Tobacco Use Types Packs/Day Years Used Date Smoking Tobacco: Never Smokeless Tobacco: Never Tobacco Cessation:Counseling Given: Not Answered Sex and Gender Information Value Date Recorded Sex Assigned at Not on file Legal Sex Male 2:53 AM EDT Gender Identity Not on file Sexual Orientation Not on file Obstetrics History Last Filed Vital Signs Vital Sign Reading [...] Mass Index 29.88 09/13/2024 1:27 PM EDT Plan of Treatment Upcoming Encounters Date Type Department Care Team (Late st Contact Info) Description 10/17/2024 2:30 PM EDT Office Visit [facility] [address] [address] Juliana Mistry APRN [address] [place], [place] [id number] 12/12/2024 11:00 AM EDT Office Visit [facility] [address] [place] [address] Loly Golden DO [address] [place] [address] Health Maintenance Due Date Last Done Comments Annual Wellness Exam 1960 Hepatitis C Screening 1975 Cologuard 2002 FIT 2002 Sigmoidoscopy 2002 Virtual Colonography 2002 Pneumococcal Vaccine 50+ (1 of 1 - PCV) 2007 Zoster (1 of 2) 2007 COVID-19 Vaccine (3 - 2023-2 5 season) 2023 07/23/2020, 06/25/2020 Influenza Vaccine (Season Ended) 2024 Colon Cancer Screening 02/19/2026 Colonoscopy 02/19/2026 02/19/2021, 05/03/2010 DTaP/TDaP/Td (2 - Td or Tdap) 05/05/2028 05/05/2018 Hepatitis B Vaccine Aged Out No longe r eligible based on patient's age to complete this topic Meningococcal B Vaccine Aged Out No l onger eligible based on patient's age to complete this topic Procedures Procedure Name Priority Date/Time Associated Diagnosis Comments ED COLONOSCOPY Routine 02/19/2021 1:40 PM EST from Last 3 Months or Most Recently Relevant to Health Maintenance Results * GMED COLONOSCOPY (02/19/2021 1:40 PM EST) 02/19/2021 1:40 PM EST Impressions [facility] - 02/19/2021 2:14 PM EST Moderate diverticulosis of the sigmoid colon. Polyps (3 mm to 1 cm) in the ascending colon. (Polypectomy). Plan: Colonoscopy in 3 or 5 years depending on pathology results. This section is an excerpt of the full report. Kenan Kelly MD GI PROCEDURE ORDERABLES Fin al Result [facility] [address] [place] [address] from Last 3 Months or Most Recently Relevant to Health Maintenance Insurance [facility] CHOICE PLUS SUREST Care Teams Home Health Assistant Relationship Specialty Start Date End Date Kirs Ramos [address] [facility] [address] [place] [address] PCP - General Family Medicine 10/17/13
--- OUTSIDE RECORDS SUMMARY | 2024-09-13 15:23 | XMS_ITS | Encounter Summary ---
Author Organization [facility] [place] [address] Care Team Providers Care Circular Knitter Name Role Phone Kris Ramos Primary Care Provider [phone] Encounter Details Date Type Department Care Team (Late st Contact Info) Description 02/19/2021 Orders Only [facility] [address] [facility] [address] [place] [address] Kenan Kelly MD [address] [place], [place] [id number] Social History Tobacco Use Types Packs/Day Years [...] 2:30 PM EDT Office Visit [facility] [place] [address] [place], [place] [phone] Juliana Mistry APRN [address] [place] [address] 12/12/2024 11:00 AM EDT Office Visit [facility] [address] [place] [address] Loly Goldne, [address] [place] [address] documented as of this encounter Procedures Procedure Name Priority Date/Time Associated Diagnosis Comments GMED COLONOSCOPY Routine 02/19/2021 1:40 PM EST documented in this encounter Results * GMED COLONOSCOPY (02/19/2021 1:40 PM EST) 02/19/2021 1:40 PM EST Impressions [facility] - 02/19/2021 2:14 PM EST Moderate diverticulosis of the sigmoid colon. Polyps (3 mm to 1 cm) in the ascending colon. (Polypectomy). Plan: Colonoscopy in 3 or 5 years depending on pathology results. This section is an excerpt of the full report. us Kenan Kelly MD GI PROCEDURE ORDERABLES Fin al Result [facility] [address] [place] [address] documented in this encounter Visit Diagnoses Not on filedocumented in this encounter Care Teams Circular Knitter Relationship Specialty Start Date End Date Kris Ramos [address] [place] [address] [address] [facility] [address] PCP - General Family Medicine 10/17/13 documented as of this encounter
--- OUTSIDE RECORDS SUMMARY | 2024-09-13 15:23 | XMS_ITS | Encounter Summary ---
Author Organization [place] [address] Care Team Providers Care Gravure Press Set Up Operator Name Role Phone Kris Ramos Primary Care Provider [phone] Reason for Visit * Reason Onset Date Comments New Patient Heme 09/13/2024 New Pt Referred by: Mica Carter DX: Anemia, unspecified type Encounter Details Date Type Department Care Team (Late st Contact Info) Description 09/13/2024 [facility]phone [facility] [place] [address] Brandee Eddy APRN [address] [place] [address] New Patient Heme (New Pt Referred by: Mica Carter DX: Anemia, unspecified type) Social History Tobacco Use Types Packs/Day Years Used Date Smoking Tobacco: Never Smokeless Tobacco: Never Sex and Gender Information Value Date Recorded Sex Assigned at Not on file Legal Sex Male 2:53 AM EDT Gender Identity Not on file Sexual Orientation Not on file documented as of this encounter Miscellaneous Notes * Telephone Encounter - [facility] - 09/13/2024 2:51 PM EDT Referring Provider: Mica Carter Referring Diagnosis: Anemia, unspecified type Reason for being seen: Lab 6/9 H/H 10.7/34.6 Referral reviewed by:RB Has the patient had a recent admission to the hospital: No Is an assistant professor of criminal justice needed: No Any records outside of [facility] (Y/N)? Yes Location in [facility] (CareEverywhere / Media): Media Outside Hospital / Facility: [facility] Primary Care Confirm recent Consult/Last Office Note received? (Y/N) Yes Labs (Y/N) Yes Spoke with (Name of Person) to verify appt: Appointment date/time/location: Preferred call back number: [phone] WQ notes: documented in this encounter Plan of Treatment Upcoming Encounters Date Type Department Care Team (Late st Contact Info) Description 10/17/2024 2:30 PM EDT Office Visit [facility] [address] [address] Juliana Mistry APRN [address] [place], [place] [id number] 12/12/2024 11:00 AM EDT Office Visit [facility] [address] [place] [address] Loly Golden DO [address] [place] [address] documented as of this encounter Visit Diagnoses Not on filedocumented in this encounter Care Teams Gravure Press Set Up Operator Relationship Specialty Start Date End Date Kris Ramos [address] [facility] [address] [place], [place] [id number] PCP - General Family Medicine 10/17/13 documented as of this encounter
--- OUTSIDE RECORDS SUMMARY | 2024-09-13 15:23 | XMS_ITS | Encounter Summary ---
Author Organization [facility] [place] [address] Care Team Providers Care Diesel Engine Erector Name Role Phone Kris Ramos Primary Care Provider [phone] Encounter Details Date Type Department Care Team (Latest Contact Info) Description 09/12/2024 Travel Social History Tobacco Use Types Packs/Day Years [...] 2:30 PM EDT Office Visit [facility] [address] [address] Juliana Mistry PARKING LOT ATTENDANT [address] [place] [address] 12/12/2024 11:00 AM EDT Office Visit [facility] [address] [place] [address] Loly Golden DO [address] [place] [address] documented as of this encounter Visit Diagnoses Not on filedocumented in this encounter Care Teams Diesel Engine Erector Relationship Specialty Start Date End Date Kris Ramos [facility] [address] [place] [address] PCP - General Family Medicine 10/17/13 documented as of this encounter
== END 2024-09-12 23:59 | disposition home or self-care (01) ==
LOC: LAB.DROPOF 09-13 15:17
PROVIDERS: PCP Nurse Practitioner; Visit Provider Nurse Practitioner
DX: R60.0 Localized edema (principal)
CPT/HCPCS: 80053; 81001; 83880; 85025; 87086; 87088; 87186

== ENCOUNTER 2024-12-07 08:14 | Outpatient (CLI) | payer MEDICARE, BC, SELFPAY ==
--- OUTSIDE RECORDS SUMMARY | 2024-10-12 08:04 | XMS_ITS | Encounter Summary ---
Author Organization [place] [address] Care Team Providers Care Loan Associate Name Role Phone Kris Ramos Primary Care Provider [phone] Reason for Referral * Ultrasound (Routine) - Pending Review Specialty Diagnoses / Procedures Referred By Contac t Referred To Contact Radiology Diagnoses Jaundice Procedures US RIGHT UPPER QUADRANT Yolis Carter APRN [address] [place] [address] Phone: tel: fax: Referral ID Status Reason Start Date Expiration Date V isits Requested Visits Authorized [id number] Pending Review 09/13/2024 09/13/2025 1 1 Reason for Visit * Ultrasound (Routine) - Pending Review Specialty Diagnoses / Procedures Referred By Contac t Referred To Contact Radiology Diagnoses Jaundice Procedures US RIGHT UPPER QUADRANT Yolis Carter APRN [address] [place] [address] Phone: tel: fax: Referral ID Status Reason Start Date Expiration Date V isits Requested Visits Authorized [id number] Pending Review 09/13/2024 09/13/2025 1 1 Encounter Details Date Type Department Care Team (Latest Contact Info) Description 10/12/2024 8:04 AM EDT - 10/12/2024 11:59 PM EDT Hospital Encounter [facility] [address] [place] [address] Yolis Carter, GENETIC COUNSELOR [address] [place] [address] Jaundice Discharge Disposition: Home or Self Care Social History Tobacco Use Types Packs/Day Years Used Date Smoking Tobacco: Never Smokeless Tobacco: Never Sex and Gender Information Value Date Recorded Sex Assigned at Not on file Legal Sex Male 2:53 AM EDT Gender Identity Not on file Sexual Orientation Not on file documented as of this encounter Medications at Time of Discharge carvediloL (COREG) 25 mg Oral Tablet Take 1 Tablet by mouth 2 times daily. 180 Tablet 3 06/27/2024 cyanocobalamin 1,000 mcg Oral Tablet Take 1,000 mcg by mouth. losartan (COZAAR) 50 mg Oral Tablet Take 50 mg by mouth 2 times daily. metFORMIN (GLUCOPHAGE) 1,000 mg Oral Tablet Take 1,000 mg by mouth 2 times daily (with meals). fUROsemide (LASIX) 40 mg Oral Tablet 09/12/2024 10/17/2024 documented as of this encounter Discharge Disposition Disposition Code Departure Means Destination Home or Self Care documented in this encounter Plan of Treatment Upcoming Encounters Date Type Department Care Team (Late st Contact Info) Description 12/12/2024 11:00 AM EDT Office Visit [facility] [address] [place] [address] Loly Golden DO [address] [place] [address] documented as of this encounter Procedures Procedure Name Priority Date/Time Associated Diagnosis Comments US RIGHT UPPER QUADRANT Routine 10/12/2024 8:28 AM EDT Jaundice documented in this encounter Results * US RIGHT UPPER QUADRANT (10/12/2024 8:28 AM EDT) Anatomical Region Laterality Modality Abdomen Ultrasound 10/12/2024 8:28 AM EDT Impressions 10/12/2024 10:15 AM EDT Unremarkable right upper quadrant ultrasound. - Note: Radiology results need to be interpreted within a comprehensive clinical context. If you have questions about the radiology report, please contact the office of the ordering clinician. Narrative 10/12/2024 10:15 AM EDT US RIGHT UPPER QUADRANT, 10/12/2024 8:28 AM CLINICAL HISTORY: [id number]. COMPARISON: None. PROCEDURE COMMENTS: Ultrasound examination of the right upper quadrant performed by the technologist. Sent to PACS along with tech notes for radiologist review. FINDINGS: Gallbladder: Absent. Goncalves's sign: N/A Liver: Normal in size and echotexture. No focal lesion. Common bile duct: Measures 2 mm. (Normal is 6mm or less. If there has been cholecystectomy, normal is 10mm or less.) Pancreas: Visualized portions are normal. Other: 4 x 3 cm cyst right kidney. No hydronephrosis. Procedure Note Evon Mcmillan MD - 10/12/2024 US RIGHT UPPER QUADRANT, 10/12/2024 8:28 AM CLINICAL HISTORY: [id number]. COMPARISON: None. PROCEDURE COMMENTS: Ultrasound examination of the right upper quadrantperformed by the technologist. Sent to PACS along with tech notes for radiologistreview. FINDINGS: Gallbladder: Absent. Goncalves's sign: N/A Liver: Normal in size and echotexture. No focal lesion. Common bile duct: Measures 2 mm. (Normal is 6mm or less. If there hasbeen cholecystectomy, normal is 10mm or less.) Pancreas: Visualized portions are normal. Other: 4 x 3 cm cyst right kidney. No hydronephrosis. IMPRESSION: Unremarkable right upper quadrant ultrasound. - Note: Radiology results need to be interpreted within a comprehensiveclinical context. If you have questions about the radiology report, please contactthe office of the ordering clinician. Yolis Crater GENETIC COUNSELOR IMG US ORDERABLES Final Result documented in this encounter Visit Diagnoses Diagnosis Jaundice Jaundice, unspecified, not of documented in this encounter Care Teams Loan Associate Relationship Specialty Start Date End Date Kris Ramos [facility] [place] [address] PCP - General Family Medicine 10/17/13 documented as of this encounter
--- OUTSIDE RECORDS SUMMARY | 2024-10-17 14:30 | XMS_ITS | Encounter Summary ---
Author Organization [place] [address] Care Team Providers Care Ladies Attendant Name Role Phone Kris Ramos Primary Care Provider Reason for Visit * Reason Comments Follow-up 4 week follow up Encounter Details Date Type Department Care Team (Latest Contact Info) Description 10/17/2024 2:30 PM EDT Office Visit [facility] [address] [place] [address] Juliana Mistry, LEVI [address] [place] [address] LVH (left ventricular hypertrophy) (Primary Dx); Hypertensive heart disease without CHF; Mild mitral regurgitation Social History Tobacco Use Types Packs/Day Years Used Date Smoking Tobacco: Never Passive Smoke Exposure: Past Smokeless Tobacco: Never Sexually Active Control Partners Comments Not Currently Female Sex and Gender Information Value Date Recorded Sex Assigned at Not on file Legal Sex Male 2:53 AM EDT Gender Identity Not on file Sexual Orientation Not on file documented as of this encounter Last Filed Vital Signs Vital Sign Reading Time Taken Comments Blood Pressure 122/60 10/17/2024 2:26 PM EDT Pulse 57 10/17/2024 2:26 PM EDT Temperature - - Respiratory Rate - - Oxygen Saturation 98% 10/17/2024 2:26 PM EDT Inhaled Oxygen Concentration - - Weight 89.8 kg (198 lb) 10/17/2024 2:26 PM EDT Height - - Body Mass Index 27.77 09/13/2024 1:27 PM EDT documented in this encounter Ordered Prescriptions Prescription Sig Dispense Quantity Refills Last Filled Start Date End Date fUROsemide (LASIX) 40 mg Oral Tablet Take 1 Tablet by mouth daily. 30 Tablet 10/17/2024 11/15/2024 documented in this encounter Progress Notes * Juliana Mistry, RESPIRATORY CARE FACULTY - 10/17/2024 2:30 PM EDT Heart and Vascular Office Visit Primary interface engineer: Loly Golden D.O. History of Present Illness Ben Jackson is a 69 y.o. male with PMHx including but not limited to moderate to severe LVH, HTN,DM . Ben Jackson returned to the office for 4 wk check. BLE edema improved with lasix. No CP, SOB, orthopnea, palp or edema. Pt able to walk up a flight of stairs without having chest pain or dyspnea. Tolerating medication well. Review of Systems Denies chest pain, dyspnea/orthopnea, cough, weight changes, palpitations, dizziness, syncope, edema, fever/chills, abdominal pain, N/V, melena Current Outpatient Medications: carvediloL (COREG) 25 mg Oral Tablet, Take 1 Tablet by mouth 2 times daily., Disp: 180 Tablet, Rfl:3 cyanocobalamin 1,000 mcg Oral Tablet, Take 1,000 mcg by mouth., Disp: , Rfl: losartan (COZAAR) 50 mg Oral Tablet, Take 50 mg by mouth 2 times daily., Disp: , Rfl: metFORMIN (GLUCOPHAGE) 1,000 mg Oral Tablet, Take 1,000 mg by mouth 2 times daily (with meals)., Disp: , Rfl: fUROsemide (LASIX) 40 mg Oral Tablet, , Disp: , Rfl: Past medical history, social history and family history reviewed and updated 10/17/2024 Labs, tests and procedures reviewed and updated 10/17/2024 Vital Signs Vitals: 10/17/24 1426 BP: 122/60 Pulse: 57 SpO2: 98% Weight: 198 lb (89.8 kg) Body mass index is 27.77 kg/m??. Physical exam Constitutional: Well developed, no acute distress, non-toxic appearance Neck: normal range of motion, no tenderness, supple. Respiratory: clear to auscultation, no wheezes or rales, and unlabored breathing Cardiovascular: RRR, S1 & S2 normal, no obvious M/R/G, No bruit, JVP normal. Trace, 1+ edema, +2 radial pulses Gastrointestinal: not examined Musculoskeletal: Normal range of motion. Skin: skin warm and dry Neurologic: no obvious focal abnormalities Cardiac Studies ECHOCARDIOGRAM -echo on 01/13/24: EF 60% with no WMA. Moderate to severe increased LV wall thickness. Septum measures 1.8 cm. RVSF normal. LA mildly enlarged. Mild MR and TR. Proximal ascending aorta mildly dilated. STRESS TEST -NMST on 05/10/19: normal LHC-none Cardiac MRI was done after his visit [...] started on Lasix 40 mg daily today. -Recommended daily wt and Na restriction. -Continue coreg 25 mg daily and Losartan 50 mg BID -labs with PCP LVH -per echo in Jan 2024 and cardiac MRI Feb 2024. -refer pt for amyloid work up with [facility]. Pt changing insurance and told HF he would check back in October. Hypertension -Coreg 25 mg BID -Losartan 50 mg BID -Stable on current therapy at 122/60 Diabetes -hgbA1c 7.9 on 10/11/13 -hgbA1c 5.8 on 06/16/24 -per PCP PLAN Labs per PCP in [place], [place] Lasix 40 mg daily PRN Daily wt Compression socks -follow up HF for amyloid work up - Reinforced heart healthy diet and regular aerobic exercise - RTO 3 mths - Call for questions or concerns prior to next office visit Juliana Reyes APRN [facility] [place] documented in this encounter Plan of Treatment Upcoming Encounters Date Type Department Care Team (Late st Contact Info) Description 12/12/2024 11:00 AM EDT Office Visit [facility] [address] [place] [address] Loly Golden DO [address] [place] [id number] Scheduled Orders Name Type Priority Associated Diagnoses Orde r Schedule BASIC METABOLIC PANEL Lab Routine LVH (left ventricular hypertrophy) Hypertensive heart disease without CHF Mild mitral regurgitation 1 Occurrences starting 10/17/2024 until 04/18/2025 documented as of this encounter Visit Diagnoses Diagnosis LVH (left ventricular hypertrophy)- Primary Cardiomegaly Hypertensive heart disease without CHF Unspecified hypertensive heart disease without heart failure Mild mitral regurgitation Mitral valve disorders documented in this encounter Discontinued Medications Medication Sig Discontinue Reason Start Date End Da te fUROsemide (LASIX) 40 mg Oral Tablet Reorder 09/12/2024 10/17/2024 documented as of this encounter Care Teams Ladies Attendant Relationship Specialty Start Date End Date Kris Ramos [address] [place] [address] [address] [place] [address] PCP - General Family Medicine 10/17/13 documented as of this encounter
--- OUTSIDE RECORDS SUMMARY | 2024-10-25 15:00 | XMS_ITS | Encounter Summary ---
Author Organization [place] [address] Care Team Providers Care Border Patrol Officer Name Role Phone Kris Ramos Primary Care Provider [phone] Reason for Visit * Reason Comments Other Elev bili Anemia * Consultation (Routine) - Pending Review Specialty Diagnoses / Procedures Referred By Contac t Referred To Contact Diagnoses Elevated bilirubin Yolis Carter, [employer] [address] [facility] [address] [place] [address] Phone: tel: fax: [facility] [address] entrance, [address]rd [place] [address] Phone: tel: fax: Referral ID Status Reason Start Date Expiration Date V isits Requested Visits Authorized [id number] Pending Review 09/13/2024 09/13/2025 1 1 Encounter Details Date Type Department Care Team (Late st Contact Info) Description 10/25/2024 3:00 PM EDT Office Visit [facility] [address] [place] [address] Isaías Orozco MD [address] [place] [address] Normocytic anemia (Primary Dx) Social History Tobacco Use Types Packs/Day Years Used Date Smoking Tobacco: Never Passive Smoke Exposure: Past Smokeless Tobacco: Never Tobacco Cessation:Counseling Given: Not Answered Alcohol Use Standard Drinks/Week Comments Not Currently 0 (1 standard drink = 0.6 oz pure alcohol) Do not drink alcohol at all any more. 47 yrs ago Sexually Active Control Partners Comments Not Currently Post-menopausal Female Sex and Gender Information Value Date Recorded Sex Assigned at Not on file Legal Sex Male 2:53 AM EDT Gender Identity Not on file Sexual Orientation Not on file documented as of this encounter Last Filed Vital Signs Vital Sign Reading Time Taken Comments Blood Pressure 124/60 10/25/2024 2:54 PM EDT Pulse 72 10/25/2024 2:54 PM EDT Temperature - - Respiratory Rate - - Oxygen Saturation - - Inhaled Oxygen Concentration - - Weight 89.1 kg (196 lb 6.4 oz) 10/25/2024 2:54 P M EDT Height 177.8 cm (5' 10 ) 10/25/2024 2:54 PM EDT Body Mass Index 28.18 10/25/2024 2:54 PM EDT documented in this encounter Progress Notes * Isaías Orozco MD - 10/25/2024 3:00 PM EDT [facility] Gastroenterology Consult Note Primary Care Physician: Kris Ramos Reason for referral: Other (Elev bili/) and Anemia History of Presenting Illness Ben Jackson is a(n) 69 y.o. male asked to see us in consultation by Kris Ramso for evaluation of elevated bilirubin. 69-year-old male with a medical history significant for hypertension and left ventricular hypertrophy who recently had blood work done at [facility] for lower extremity swelling and subsequently noted to have an elevated bilirubin for which she has been referred here. Patient denies any symptoms whatsoever. On September 12, he had blood work that showed an elevated total bilirubin of 2.0. This was not fractionated. Normal LFTs. Had a hemoglobin of 10.7. Normal MCV and normal MCHC. Iron studies and other studies not done. Had a colonoscopy in 2020 with removal of 2 tubular adenomas. No family history of any gastrointestinal cancers or illnesses. Review of Systems: All review of systems were reviewed and negative except for those mentioned above in the HPI. PMSH: Past Medical History: Diagnosis Date ??? Diabetes mellitus (HCC) ??? LVH (left ventricular hypertrophy) 09/13/2024 ??? Primary hypertension 09/13/2024 Past Surgical History: Procedure Laterality Date ??? ANTERIOR CRUCIATE LIGAMENT REPAIR Meniscus repair ??? CHOLECYSTECTOMY 1998 Medications Current Outpatient Medications Medication Sig Dispense Refill ??? carvediloL (COREG) 25 mg Oral Tablet Take 1 Tablet by mouth 2 times daily. 180 Tablet 3 ??? cyanocobalamin 1,000 mcg Oral Tablet Take 1,000 mcg by mouth. ??? fUROsemide (LASIX) 40 mg Oral Tablet Take 1 Tablet by mouth daily. 30 Tablet 0 ??? losartan (COZAAR) 50 mg Oral Tablet Take 50 mg by mouth 2 times daily. ??? metFORMIN (GLUCOPHAGE) 1,000 mg Oral Tablet Take 1,000 mg by mouth 2 times daily (with meals). No current facility-administered medications for this visit. Allergy: Allergies Allergen Reactions ??? Adhesive Tape-Silicones Hives ??? Red Dye Hives and Itching FMH: Family History Problem Relation Age of Onset ??? Heart Attack Brother Driving home from work. ??? Heart Surgery Brother Had to have a triple bypass. Social History: Social History Socioeconomic History ??? Marital status: Spouse name: Not on file ??? Number of children: Not on file ??? Years of education: Not on file ??? Highest education level: Not on file Occupational History ??? Not on file Tobacco Use ??? Smoking status: Never Passive exposure: Past ??? Smokeless tobacco: Never Vaping Use ??? Vaping status: Never Used Substance and Sexual Activity ??? Alcohol use: Not Currently Comment: Do not drink alcohol at all any more. 47 yrs ago ??? Drug use: Never ??? Sexual activity: Not Currently Partners: Female control/protection: Post-menopausal Other Topics Concern ??? Not on file Social History Narrative ??? Not on file Social Drivers of Health Financial Resource Strain: Not on file Food Insecurity: Not on file Transportation Needs: Not on file Physical Activity: Not on file Stress: Not on file Social Connections: Not on file Intimate Partner Violence: Not on file Housing Stability: Not on file BP 124/60 (BP Location: Left arm, Patient Position: Sitting) Pulse 72 Ht 5' 10 (1.778 m) Wt 196 lb 6.4 oz (89.1 kg) BMI 28.18 kg/m?? Physical Exam Vitals and nursing note reviewed. Constitutional: General: He is not in acute distress. Appearance: Normal appearance. He is not ill-appearing. HENT: Head: Normocephalic and atraumatic. Eyes: Extraocular Movements: Extraocular movements intact. Cardiovascular: Rate and Rhythm: Normal rate. Pulmonary: Effort: No respiratory distress. Musculoskeletal: General: Normal range of motion. Cervical back: Normal range of motion. Skin: Coloration: Skin is not jaundiced. Neurological: General: No focal deficit present. Mental Status: He is alert and oriented to person, place, and time. Mental status is at baseline. Psychiatric: Mood and Affect: Mood normal. Behavior: Behavior normal. Thought Content: Thought content normal. Judgment: Judgment normal. Laboratory: Lab Results Component Value Date WBC 9.3 11/18/2011 HGB 13.7 11/18/2011 HCT 40.3 11/18/2011 MCV 89.4 11/18/2011 PLT 293 11/18/2011 Lab Results Component Value Date ALT 21 06/16/2014 AST 14 06/16/2014 ALKPHOS 66 06/16/2014 BILIDIR 0.1 06/29/2010 PROT 6.7 06/16/2014 Lab Results Component Value Date CREATININE 0.82 06/16/2014 BUN 14 06/16/2014 NA 140 06/16/2014 K 4.4 06/16/2014 CL 102 06/16/2014 CO2 28 06/16/2014 No results found for: INR , PROTIME Imaging: No results found for this or any previous visit. No results found for this or any previous visit. No results found for this or any previous visit. Previous imaging and any available records were [facility] the [facility] and summarized in the HPI. Assessment/Plan 69-year-old male with a medical history significant for hypertension and left ventricular hypertrophy whom we are evaluating in the office today for routine blood work showing an elevated bilirubin of 2.0 and normocytic anemia. Workup essentially incomplete and unable to make any assessment at this point. Will need to get fractionation of the bilirubin to see if this is direct or indirect. Given the new bilirubinemia and anemia, I suspect this is likely indirect hyperbilirubinemia. Blood work as below. Furthermore, patient has normocytic anemia and already has been referred to hematology. Iron studies, B12 and folate. 1. Normocytic anemia (Primary) - CBC WITH DIFF; Future - RETICULOCYTE PANEL DIAGNOSTIC; Future - IRON+TIBC; Future - FOLATE LEVEL; Future - VITAMIN B12 LEVEL; Future - HEPATIC FUNCTION PANEL; Future RTC 2 months Thank you Kris Ramos for asking me to see Ben Manuel in consultation This note was generated by [employer] Voice Recognition technology. It has been reviewed by the undersigned, however, may still contain unintended errors. Isaías Orozco MD [employer] Set Up Operator [facility] [phone] documented in this encounter Plan of Treatment Upcoming Encounters Date Type Department Care Team (Late st Contact Info) Description 12/12/2024 11:00 AM EDT Office Visit [facility] [address] [place] [phone] Loly Golden DO [address] [place] [phone] documented as of this encounter Results * HEPATIC FUNCTION PANEL (10/27/2024 12:34 PM EDT) Total Protein 6.8 6.4 - 8.3 gm/dL 10/27/2024 10:25 PM EDT [facility] Albumin 4.4 3.2 - 4.6 gm/dL 10/27/2024 10:25 PM EDT [facility] Bili Direct 0.3 0.0 - 0.3 mg/dL 10/27/2024 10:25 PM EDT [facility] Bili Total 1.2 0.2 - 1.4 mg/dL 10/27/2024 10:25 PM EDT [facility] AST 18 <=40 U/L 10/27/2024 10:25 PM EDT [facility] ALT 19 <=41 U/L 10/27/2024 10:25 PM EDT [facility] Alk Phos 89 40 - 129 U/L 10/27/2024 10:25 PM EDT [facility] Blood VENOUS BLOOD / Unknown Venipuncture / Unknown 10/27/2024 12:34 PM EDT 10/27/2024 12:39 PM EDT Isaías Orozco MD CHEMISTRY ORDERABLES Final R esult Performing Organization Address [facility]/ZIP Co de Phone Number [facility] , [place] [address] * VITAMIN B12 LEVEL (10/27/2024 12:34 PM EDT) Vitamin B12 851 232 - 1,245 pg/mL 10/27/2024 10:34 PM EDT [facility] Blood VENOUS BLOOD / Unknown Venipuncture / Unknown 10/27/2024 12:34 PM EDT 10/27/2024 12:39 PM EDT Narrative [facility] - 10/27/2024 10:34 PM EDT Ingestion of hallie doses of biotin (>5 mg/day) taken within 8 hours of drawing blood sample can interfere with this immunoassay test. Isaías Orozco MD CHEMISTRY ORDERABLES Final R [facility] Performing Organization Address [facility] de Phone Number [facility] [employer] [address] , [place] [address] * FOLATE LEVEL (10/27/2024 12:34 PM EDT) Folate >16.00 >=4.50 ng/mL 10/27/2024 10:34 PM EDT [facility] Blood VENOUS BLOOD / Unknown Venipuncture / Unknown 10/27/2024 12:34 PM EDT 10/27/2024 12:39 PM EDT Narrative [facility] - 10/27/2024 10:34 PM EDT Ingestion of hallie doses of biotin (>5 mg/day) taken within 8 hours of drawing blood sample can interfere with this immunoassay test. Isaías Orozco MD CHEMISTRY ORDERABLES Final R esult Performing Organization Address City/[facility]/ZIP Co de Phone Number [facility], [address] , [place] [address] * (ABNORMAL) IRON+TIBC (10/27/2024 12:34 PM EDT) Pathologist [facility] Iron 69 50 - 170 mcg/dL 10/27/2024 10:25 PM EDT [facility] Transferrin 274 200 - 360 mg/dL 10/27/2024 10:25 PM EDT [facility] Transferrin Saturation 18(L) 20 - 50 % 10/27/2024 10:25 PM EDT [facility] TIBC 384 250 - 400 mcg/dL 10/27/2024 10:25 PM EDT [facility] Blood VENOUS BLOOD / Unknown Venipuncture / Unknown 10/27/2024 12:34 PM EDT 10/27/2024 12:39 PM EDT Isaías Orozco MD CHEMISTRY ORDERABLES Final R esult Performing Organization Address City/[facility]/ZIP Co de Phone Number [facility], [address] , [place] [address] * RETICULOCYTE PANEL DIAGNOSTIC (10/27/2024 12:34 PM EDT) [facility] Retic Cnt Auto 1.2 0.9 - 2.5 % 10/27/2024 3:12 PM EDT [facility] Retic # 45.0 40.0 - 110.0 x10(3)/mcL 10/27/2024 3:12 PM EDT [facility] Imm. Retic Fraction % 12.3 3.1 - 17.6 % 10/27/2024 3:12 PM EDT [facility] Retic Hgb 34.5 28.0 - 38.0 pg 10/27/2024 3:12 PM EDT [facility] Blood VENOUS BLOOD / Unknown Venipuncture / Unknown 10/27/2024 12:34 PM EDT 10/27/2024 12:39 PM EDT Narrative [facility] - 10/27/2024 3:12 PM EDT Reticulocyte hemoglobin content (RET-He), a direct measurement of hemoglobinization of the developing reticulocyte, should be interpreted in conjunction with other indices. In various adult studies, values lower than 27-28pg (1,2) have demonstrated specificities for iron deficiency exceeding 90%. In a study of cancer patients, values exceeding 32pg (3) ruled out iron deficiency with a negative predictive value of 98.5%. RET-He has also demonstrated utility for monitoring response to iron replacement therapy (4). The immature reticulocyte fraction (IRF) assesses reticulocyte maturation by measuring the intensity of mRNA staining with the youngest reticulocytes having the highest content. (1)Mariama, Y., et al. 2017. Int J Hematol 106:116-125. (2)Danny Rg., et al. 2017. Nutrients 9:450. (3)Rocco Graves, et al. 2014. Am J Clin Pathol 142:506-512. (4)David, L., et al. 2010. Blood 116:3340-1756. us Isaías Orozco MD HEMATOLOGY ORDERABLES Final Result [facility] [address] [facility] , [address] [place] [id number] * (ABNORMAL) CBC WITH DIFF (10/27/2024 12:34 PM EDT) WBC 9.0 3.7 - 10.3 x10(3)/mcL 10/27/2024 3:12 PM EDT [facility] RBC 3.88(L) 4.60 - 6.10 x10(6)/mcL 10/27/2024 3:12 PM EDT [facility] Hgb 11.5(L) 13.7 - 17.5 g/dL 10/27/2024 3:12 PM EDT [facility] Hct 35.0(L) 40.0 - 51.0 % 10/27/2024 3:12 PM EDT [facility] MCV 90.2 80.0 - 100.0 fL 10/27/2024 3:12 PM EDT [facility] MCH 29.6 26.0 - 34.0 pg 10/27/2024 3:12 PM EDT [facility] MCHC 32.9 30.7 - 35.5 g/dL 10/27/2024 3:12 PM EDT [facility] RDW 13.7 <=14.9 % 10/27/2024 3:12 PM EDT [facility] Platelet 276 155 - 369 x10(3)/mcL 10/27/2024 3:12 PM EDT [facility] MPV 10.4 8.8 - 12.5 fL 10/27/2024 3:12 PM EDT [facility] Neut Percent 64.0 % 10/27/2024 3:12 PM EDT [facility] Comment:Neutrophils equals s egs plus bands Imm Gran% 0.2 % 10/27/2024 3:12 PM EDT [facility] Comment:Automated count of m etamyelocytes, myelocytes and promyelocytes. Lymph Percent 27.2 % 10/27/2024 3:12 PM EDT [facility] Moffat Percent 7.1 % 10/27/2024 3:12 PM EDT [facility] Eos Percent 1.3 % 10/27/2024 3:12 PM EDT [facility] Baso Percent 0.2 % 10/27/2024 3:12 PM EDT [facility] Neut # 5.8 1.6 - 6.1 x10(3)/mcL 10/27/2024 3:12 PM EDT [facility] Comment:Neutrophils equals s egs plus bands IMMGRAN# 0.0 0.0 - 0.1 x10(3)/mcL 10/27/2024 3:12 PM EDT [facility] Comment:Automated count of m etamyelocytes, myelocytes and promyelocytes. An absolute IG <0.1 is reported as 0.0. Lymph # 2.5 1.2 - 3.9 x10(3)/mcL 10/27/2024 3:12 PM EDT [facility] Moffat # 0.6 0.3 - 0.9 x10(3)/mcL 10/27/2024 3:12 PM EDT [facility] Eos# 0.1 0.0 - 0.5 x10(3)/mcL 10/27/2024 3:12 PM EDT [facility] Baso # 0.0 0.0 - 0.1 x10(3)/mcL 10/27/2024 3:12 PM EDT [facility] Blood VENOUS BLOOD / Unknown Venipuncture / Unknown 10/27/2024 12:34 PM EDT 10/27/2024 12:39 PM EDT us Isaías Orozco MD HEMATOLOGY ORDERABLES Final Result [facility] [address] [facility] , [place] [address] documented in this encounter Visit Diagnoses Diagnosis Normocytic anemia- Primary Anemia, unspecified documented in this encounter Care Teams Border Patrol Officer Relationship Specialty Start Date End Date Kris Ramos [address] [place] [address] [address] [place] [address] PCP - General Family Medicine 10/17/13 documented as of this encounter
--- OUTSIDE RECORDS SUMMARY | 2024-10-27 12:30 | XMS_ITS | Encounter Summary ---
Author Organization [place] [address] Care Team Providers Care Otr Company Driver Name Role Phone Kris Ramos Primary Care Provider [phone] Encounter Details Date Type Department Care Team (Latest Contact Info) Description 10/27/2024 12:30 PM EDT - 10/27/2024 11:59 PM EDT Hospital Encounter [facility] [address] [place] [address] Normocytic anemia Discharge Disposition: Home or Self Care Social History Tobacco Use Types Packs/Day Years Used Date Smoking Tobacco: Never Passive Smoke Exposure: Past Smokeless Tobacco: Never Alcohol Use Standard Drinks/Week Comments Not Currently [...] meals). fUROsemide (LASIX) 40 mg Oral Tablet Take 1 Tablet by mouth daily. 30 Tablet 10/17/2024 11/15/2024 documented as of this encounter Discharge Disposition Disposition Code Departure Means Destination Home or Self Care documented in this encounter Plan of Treatment Upcoming Encounters Date Type Department Care Team (Late st Contact Info) Description 12/12/2024 11:00 AM EDT Office Visit [facility] [address] [place] [address] Loly Golden DO [address] [place] [address] documented as of this encounter Procedures Procedure Name Priority Date/Time Associated Diagnosis Comments RETICULOCYTE PANEL DIAGNOSTIC Routine 10/27/2024 12:34 PM EDT Normocytic anemia IRON+TIBC Routine 10/27/2024 12:34 PM EDT Normocytic anemia CBC WITH DIFF Routine 10/27/2024 12:34 PM EDT Normocytic anemia FOLATE LEVEL Routine 10/27/2024 12:34 PM EDT Normocytic anemia VITAMIN B12 LEVEL Routine 10/27/2024 12: 34 PM EDT Normocytic anemia HEPATIC FUNCTION PANEL Routine 10/27/2024 12:34 PM EDT Normocytic anemia documented in this encounter Results * HEPATIC FUNCTION PANEL [...] U/L 10/27/2024 10:25 PM EDT [facility], [facility] ALT 19 <=41 U/L 10/27/2024 10:25 PM EDT [facility] Alk Phos 89 40 - 129 U/L 10/27/2024 10:25 PM EDT [facility] Blood VENOUS BLOOD / Unknown Venipuncture / Unknown 10/27/2024 12:34 PM EDT 10/27/2024 12:39 PM EDT Isaías Orozco MD CHEMISTRY ORDERABLES Final R esult Performing Organization Address [facility]/ZIP Co de Phone Number [address] , [place] [address] * VITAMIN B12 LEVEL (10/27/2024 12:34 PM EDT) Vitamin B12 851 232 - 1,245 pg/mL 10/27/2024 10:34 PM EDT [facility] Blood VENOUS BLOOD / Unknown Venipuncture / Unknown 10/27/2024 12:34 PM EDT 10/27/2024 12:39 PM EDT Narrative [facility]REFERRED [facility] - 10/27/2024 10:34 PM EDT Ingestion of hallie doses of biotin (>5 mg/day) taken within 8 hours of drawing blood sample can interfere with this immunoassay test. Isaías Orozco MD CHEMISTRY ORDERABLES Final R esult Performing Organization Address [facility]/ZIP Co de Phone Number [address] , [place] [address] * FOLATE LEVEL (10/27/2024 12:34 PM EDT) Folate >16.00 >=4.50 ng/mL 10/27/2024 10:34 PM EDT [facility] Blood VENOUS BLOOD / Unknown Venipuncture / Unknown 10/27/2024 12:34 PM EDT 10/27/2024 12:39 PM EDT Narrative [facility], [facility] - 10/27/2024 10:34 PM EDT Ingestion of hallie doses of biotin (>5 mg/day) taken within 8 hours of drawing blood sample can interfere with this immunoassay test. Isaías Orozco MD CHEMISTRY ORDERABLES Final R esult Performing Organization Address City/[facility]/ZIP Co de Phone Number [facility]REFERRED [facility], [address] , [place] [address] * (ABNORMAL) IRON+TIBC (10/27/2024 12:34 PM EDT) Iron 69 50 - 170 mcg/dL 10/27/2024 10:25 PM EDT [facility], [facility] Transferrin 274 200 - 360 mg/dL 10/27/2024 10:25 PM EDT [facility], [facility] Transferrin Saturation 18(L) 20 - 50 % 10/27/2024 10:25 PM EDT [facility], [facility] TIBC 384 250 - 400 mcg/dL 10/27/2024 10:25 PM EDT [facility], [facility] Blood VENOUS BLOOD / Unknown Venipuncture / Unknown 10/27/2024 12:34 PM EDT 10/27/2024 12:39 PM EDT Isaías Orozco MD CHEMISTRY ORDERABLES Final R esult Performing Organization Address City/[facility]/ZIP Co de Phone Number [facility], [address] , [place] [address] * RETICULOCYTE PANEL DIAGNOSTIC (10/27/2024 12:34 PM EDT) Retic Cnt Auto 1.2 0.9 - 2.5 % 10/27/2024 3:12 PM EDT [facility] Retic # 45.0 40.0 - 110.0 x10(3)/mcL 10/27/2024 3:12 PM EDT [facility] Imm. Retic Fraction % 12.3 3.1 - 17.6 % 10/27/2024 3:12 PM EDT [facility] Retic Hgb 34.5 28.0 - 38.0 pg 10/27/2024 3:12 PM EDT [facility] Blood VENOUS BLOOD / Unknown Venipuncture / Unknown 10/27/2024 12:34 PM EDT 10/27/2024 12:39 PM EDT Narrative [facility] - 10/27/2024 3:12 PM EDT Reticulocyte hemoglobin [...] the youngest reticulocytes having the highest content. (1)Mariama Y., et al. 2017. Int J Hematol 106:116-125. (2)Arcenio J., et al. 2017. Nutrients 9:450. (3)Itzel Graves., et al. 2014. Am J Clin Pathol 142:506-512. (4)David L., et al. 2010. Blood 116:6066-5469. us Isaías Orozco MD HEMATOLOGY ORDERABLES Final Result [facility] [address] [facility] , [place] [address] * (ABNORMAL) CBC WITH DIFF (10/27/2024 12:34 PM EDT) WBC 9.0 3.7 - 10.3 x10(3)/mcL 10/27/2024 3:12 PM EDT [facility] RBC 3.88(L) 4.60 - 6.10 x10(6)/mcL 10/27/2024 3:12 PM EDT [facility] Hgb 11.5(L) 13.7 - 17.5 g/dL 10/27/2024 3:12 PM EDT [facility] Hct 35.0(L) 40.0 - 51.0 % 10/27/2024 3:12 PM EDT [facility] MCV 90.2 80.0 - 100.0 fL 10/27/2024 3:12 PM EDT [facility] MCH 29.6 26.0 - 34.0 pg 10/27/2024 3:12 PM EDT [facility] MCHC 32.9 30.7 - 35.5 g/dL 10/27/2024 3:12 PM EDT [facility] RDW 13.7 <=14.9 % 10/27/2024 3:12 PM EDT [facility] Platelet 276 155 - 369 x10(3)/mcL 10/27/2024 3:12 PM EDT [facility] MPV 10.4 8.8 - 12.5 fL 10/27/2024 3:12 PM EDT [facility] Neut Percent 64.0 % 10/27/2024 3:12 PM EDT [facility] Comment:Neutrophils equals s egs plus bands Imm Gran% 0.2 % 10/27/2024 3:12 PM EDT [facility] Comment:Automated count of m etamyelocytes, myelocytes and promyelocytes. Lymph Percent 27.2 % 10/27/2024 3:12 PM EDT [facility] Hidalgo Percent 7.1 % 10/27/2024 3:12 PM EDT [facility] Eos Percent 1.3 % 10/27/2024 3:12 PM EDT [facility] Baso Percent 0.2 % 10/27/2024 3:12 PM EDT [facility] Neut # 5.8 1.6 - 6.1 x10(3)/mcL 10/27/2024 3:12 PM EDT [facility] Comment:Neutrophils equals s egs plus bands IMMGRAN# 0.0 0.0 - 0.1 x10(3)/mcL 10/27/2024 3:12 PM EDT [facility] Comment:Automated count of m etamyelocytes, myelocytes and promyelocytes. An absolute IG <0.1 is reported as 0.0. Lymph # 2.5 1.2 - 3.9 x10(3)/mcL 10/27/2024 3:12 PM EDT [facility] Hidalgo # 0.6 0.3 - 0.9 x10(3)/mcL 10/27/2024 3:12 PM EDT [facility] Eos# 0.1 0.0 - 0.5 x10(3)/mcL 10/27/2024 3:12 PM EDT [facility] Baso # 0.0 0.0 - 0.1 x10(3)/mcL 10/27/2024 3:12 PM EDT [facility] Blood VENOUS BLOOD / Unknown Venipuncture / Unknown 10/27/2024 12:34 PM EDT 10/27/2024 12:39 PM EDT Isaías Orozco MD HEMATOLOGY ORDERABLES Final Result [facility] [address] [facility] , [address] [place] [id number] documented in this encounter Visit Diagnoses Diagnosis Normocytic anemia Anemia, unspecified documented in this encounter Care Teams Otr Company Driver Relationship Specialty Start Date End Date Kris Ramos [address] [place] [address] [address] [place] [address] PCP - General Family Medicine 10/17/13 documented as of this encounter
[2024-12-07 18:17] LABS: Hematocrit 32.2 % (42.0-52.0); Hemoglobin 10.4 g/dL (14.1-18.0); Immature Granulocytes % 0.4 %; Mean Corpuscular HGB Conc 32.3 g/dL (31.8-35.4); Mean Corpuscular Hemoglobin 29.6 pg (27.0-31.2); Mean Corpuscular Volume 91.7 fl (80-94); Nucleated Red Blood Cells % 0 %; Platelet Count 282 K/mm3 (142-424); Red Blood Count 3.51 M/mm3 (4.60-6.20); Red Cell Distribution Width-SD 47.8 fL; White Blood Count 7.8 K/mm3 (4.8-10.8)
[2024-12-07 19:17] LABS: Alanine Aminotransferase 23 U/L (12-78); Albumin Level 4.2 g/dl (3.5-5.0); Albumin/Globulin Ratio 1.8 (1.1-1.8); Alkaline Phosphatase 104 U/L (38-126); Anion Gap 12.9 mEq/L (5-15); Aspartate Amino Transferase 21 U/L (17-59); Bilirubin,Total 1.5 mg/dl (0.2-1.3); Blood Urea Nitrogen 20 mg/dl (9-20); Calcium 9.4 mg/dl (8.4-10.2); Carbon Dioxide 28 mmol/L (22.0-30.0); Chloride 102 mmol/L (98-107); Cholesterol 141 mg/dl (140-200); Creatinine,Serum 1.20 mg/dl (0.66-1.25); Estimated Glomerular Filt Rate 60 ml/min (>60); GFR (African American) 73 ML/MIN (>60); Globulin 2.3 g/dL (1.3-3.2); Glucose 103 mg/dl (74-100); HDL Cholesterol 32 mg/dl (40-60); Potassium 3.9 mmoL/L (3.5-5.1); Sodium 139 mmol/L (136-145); Total Protein,Serum 6.5 g/dl (6.3-8.2); Triglycerides 95 mg/dl (30-150)
[2024-12-07 20:07] LABS: Vitamin B12 574 pg/mL (239-931)
[2024-12-07 20:47] LABS: Hemoglobin A1C 6.2 % (4.0-6.0)
--- OUTSIDE RECORDS SUMMARY | 2024-12-09 08:33 | XMS_ITS | Encounter Summary ---
Author Organization [place] [address] Care Team Providers Care Healthcare Architect Name Role Phone Kris Ramos Primary Care Provider Reason for Visit * Reason Comments Medication Refill Encounter Details Date Type Department Care Team (Late st Contact Info) Description 11/14/2024 Refill [facility] [address] [id number] [place], Loly, DO [address] [place] [address] Medication Refill Social History Tobacco Use Types Packs/Day Years [...] on file documented as of this encounter Ordered Prescriptions Prescription Sig Dispense Quantity Refills Last Filled Start Date End Date fUROsemide (LASIX) 40 mg Oral Tablet TAKE 1 TABLET BY MOUTH EVERY DAY 30 Tablet 11/15/2024 documented in this encounter Miscellaneous Notes * Telephone Encounter - Michelle Young CPhT - 11/15/2024 9:31 AM EDT furosemide Future Visit: 12/12/24 Last Assessed Visit: 10/17/24 Follow-Up: 10/17/25 This patient requires the following labs/vitals. Routing to the office. Serum sodium (6 months), Abnormal serum potassium OR potassium not on file within 6 months, and Serum creatinine (6 months) documented in this encounter Plan of Treatment Upcoming Encounters Date Type Department Care Team (Late st Contact Info) Description 12/12/2024 11:00 AM EDT Office Visit [facility] [address] [place] [address] Loly Golden DO [address] [place] [address] documented as of this encounter Visit Diagnoses Not on filedocumented in this encounter Discontinued Medications Medication Sig Discontinue Reason Start Date End Da te fUROsemide (LASIX) 40 mg Oral Tablet Take 1 Tablet by mouth daily. 10/17/2024 11/15/2024 documented as of this encounter Care Teams Healthcare Architect Relationship Specialty Start Date End Date Kris Ramos [address] [facility] [address] [place] [address] PCP - General Family Medicine 10/17/13 documented as of this encounter
--- OUTSIDE RECORDS SUMMARY | 2024-12-09 08:33 | XMS_ITS | Encounter Summary ---
Author Organization [facility] [place] [address] Care Team Providers Care Propeller Driven Airplane Mechanic Name Role Phone Kris Ramos Primary Care Provider [phone] Encounter Details Date Type Department Care Team (Latest Contact Info) Description 10/24/2024 Travel Social History Tobacco Use Types Packs/Day [...] EDT Office Visit [facility] [address] [place] [address] ChicoJohniei, DO [address] [place] [address] documented as of this encounter Visit Diagnoses Not on filedocumented in this encounter Care Teams Propeller Driven Airplane Mechanic Relationship Specialty Start Date End Date Kris Ramos [address] [facility] [address] [place] [address] PCP - General Family Medicine 10/17/13 documented as of this encounter
--- OUTSIDE RECORDS SUMMARY | 2024-12-09 08:33 | XMS_ITS | Encounter Summary ---
Author Organization [place] [address] Care Team Providers Care Assistant Toddler Teacher Name Role Phone Kris Ramos Primary Care Provider [phone] Encounter Details Date Type Department Care Team (Latest Contact Info) Description 10/31/2024 Results Follow-Up [facility] [address], [address] [place] [address] Isaías Orozco MD [address] [place] [address] CBC WITH DIFF, RETICULOCYTE PANEL DIAGNOSTIC, IRON+TIBC, Additional followed-up results: 3 Social History Tobacco Use Types Packs/Day Years [...] EDT Office Visit [facility] [address] [place] [address] Loly Golden DO [address] [place] [address] documented as of this encounter Visit Diagnoses Not on filedocumented in this encounter Care Teams Assistant Toddler Teacher Relationship Specialty Start Date End Date Kris Ramos [facility] [address] [place] [address] PCP - General Family Medicine 10/17/13 documented as of this encounter
--- OUTSIDE RECORDS SUMMARY | 2024-12-09 08:33 | XMS_ITS | Encounter Summary ---
Author Organization [place] [address] Care Team Providers Care Flagsetter Name Role Phone Kris Ramos Primary Care Provider [phone] Reason for Visit * Reason Onset Date Comments Other 09/15/2024 Encounter Details Date Type Department Care Team (Late st Contact Info) Description 09/15/2024 Telephone [facility] [address] [place] [address] Mickey Wiley, RN Other Social History Tobacco Use Types Packs/Day Years Used Date Smoking Tobacco: Never Smokeless Tobacco: Never Sex and Gender Information Value Date Recorded Sex Assigned at Not on file Legal Sex Male 2:53 AM EDT Gender Identity Not on file Sexual Orientation Not on file documented as of this encounter Miscellaneous Notes * Telephone Encounter - Mickey Wiley RN - 11/03/2024 9:24 AM EDT LVM to call back regarding scheduling new pt appt * Telephone Encounter - Mickey Wiley RN - 09/15/2024 10:12 AM EDT Spoke with pt and offered to schedule appt, he is working on getting new insurance and wants to check back end of October. Will close referral at this time. He has our # to call if he gets any insuranceapproval on his end in the meantime. documented in this encounter Plan of Treatment Upcoming Encounters Date Type Department Care Team (Late st Contact Info) Description 12/12/2024 11:00 AM EDT Office Visit [facility] [address] [place] [address] Loly Golden DO [address] [place] [address] documented as of this encounter Visit Diagnoses Not on filedocumented in this encounter Care Teams Flagsetter Relationship Specialty Start Date End Date Kris Ramos [address] [facility] [address] [place] [address] PCP - General Family Medicine 10/17/13 documented as of this encounter
--- OUTSIDE RECORDS SUMMARY | 2024-12-09 08:33 | XMS_ITS | Encounter Summary ---
Author Organization [facility] [place] [address] Care Team Providers Care Wax Blender Name Role Phone Kris Ramos Primary Care Provider [phone] Encounter Details Date Type Department Care Team (Latest Contact Info) Description 12/06/2024 Travel Social History Tobacco Use Types Packs/Day [...] EDT Office Visit [facility] [address] [place] [address] [place], Loly, DO [address] [place] [address] documented as of this encounter Visit Diagnoses Not on filedocumented in this encounter Care Teams Wax Blender Relationship Specialty Start Date End Date Kris Ramos [address] [place] [facility] [address] [place] [address] PCP - General Family Medicine 10/17/13 documented as of this encounter
--- OUTSIDE RECORDS SUMMARY | 2024-12-09 08:33 | XMS_ITS | Encounter Summary ---
Author Organization [facility] [place] [address] Care Team Providers Care Auto Fleet Maintenance Manager Name Role Phone Kris Ramos Primary Care Provider [phone] Encounter Details Date Type Department Care Team (Latest Contact Info) Description 10/17/2024 Travel Social History Tobacco Use Types Packs/Day [...] EDT Office Visit [facility] [address] [place] [address] ChicoJohniei, DO [address] [place] [address] documented as of this encounter Visit Diagnoses Not on filedocumented in this encounter Care Teams Auto Fleet Maintenance Manager Relationship Specialty Start Date End Date Kris Ramos [address] [facility] [address] [place] [address] PCP - General Family Medicine 10/17/13 documented as of this encounter
--- OUTSIDE RECORDS SUMMARY | 2024-12-09 08:37 | XMS_ITS | Clinical Summary ---
Author Organization [facility] Address [address] [place] [address] Care Team Providers Care Human Resources Administrator Name Role Phone Unavailable Primary Care Provider [...] therelease of HIV test results or diagnoses. [id number] Social History Tobacco Use Types Packs/Day Years Used Date Smoking Tobacco: Never Assessed Sex and Gender Information Value Date Recorded Sex Assigned at Not on file Legal Sex Male 11:13 PM EST Gender Identity Not on file Sexual Orientation Not on file Plan of Treatment Not on file Insurance SUREST
--- OUTSIDE RECORDS SUMMARY | 2024-12-09 08:37 | XMS_ITS | Encounter Summary ---
Author Organization [place] [address] Care Team Providers Care Stabilizing Machine Operator Name Role Phone Rachel Kris Dale Primary Care Provider [phone] Encounter Details Date Type Department Care Team (Late st Contact Info) Description 02/19/2021 Orders Only [facility] [address] [facility] [address] [place] [address] Kenan Kelly MD [address] [place] [address] Social History Tobacco Use Types Packs/Day Years [...] EDT Office Visit [facility] [address] [place] [address] Loly Golden DO [address] [place] [address] documented as of this encounter Procedures Procedure Name Priority Date/Time Associated Diagnosis Comments GMED COLONOSCOPY Routine 02/19/2021 1:40 PM EST documented in this encounter Results * GMED COLONOSCOPY (02/19/2021 1:40 PM EST) 02/19/2021 1:40 PM EST Impressions [facility] - 02/19/2021 2:14 PM EST Moderate diverticulosis of the sigmoid colon. Polyps (3 mm to 1 cm) in the ascending colon. (Polypectomy). Plan: Colonoscopy in 3 or 5 years depending on pathology results. This section is an excerpt of the full report. us Kenan Kelly MD GI PROCEDURE ORDERABLES Fin al Result Performing Organization Address City/State/[facility] Co de Phone Number [facility] [address] [place] [address] documented in this encounter Visit Diagnoses Not on filedocumented in this encounter Care Teams Stabilizing Machine Operator Relationship Specialty Start Date End Date Kris Ramos [address] [place] [address] [address] [place] [address] PCP - General Family Medicine 10/17/13 documented as of this encounter
--- OUTSIDE RECORDS SUMMARY | 2024-12-09 08:37 | XMS_ITS | Encounter Summary ---
Author Organization [place] [address] Care Team Providers Care Monogram Operator Name Role Phone Kris Ramos Primary Care Provider [phone] Encounter Details Date Type Department Care Team (Late st Contact Info) Description 02/19/2021 Lab Requisition [facility] [place] [address] Kenan Kelly MD [address] [place], [place] [id number] Encounter for screening for malignant neoplasm of [...] EDT Office Visit [facility] H[facility] NPTFTT [address] [place] [address] Loly Golden DO [address] [place] [address] documented as of this encounter Procedures Procedure Name Priority Date/Time Associated Diagnosis Comments PATHOLOGY TISSUE REQUEST Routine 02/19/2021 2:14 PM EST Encounter for screening for malignant neoplasm of colon Diverticulosis of large intestine without perforation or abscess without bleeding Polyp of colon documented in this encounter Results * PATHOLOGY TISSUE REQUEST (02/19/2021 2:14 PM EST) CASE REPORT Surgical Pathology Case: [id number] Authorizing Provider: Kenan Kelly MD Collected: 02/19/2021 1414 Ordering Location: [facility] Received: 02/20/2021 0636 Pathologist: Aleksandr Beltrán MD Specimen: Large Intestine, Right/Ascendin g Colon 02/21/2021 10:10 AM EST [facility] FINAL DIAGNOSIS Ascending Colon Polyps x 2: - Tubular Adenomas, Negative For High-Grade Dysplasia. 02/21/2021 10:10 AM EST [facility] at 1010 EST GROSS DESCRIPTION Received in formalin, labeled with patient's name and ascending colon polyps 2 are multiple fragments of macias-white friable tissue, ranging from 0.3-0.6 cm. The tissue is submitted in toto in one cassette. REGGIE Lira PA(ASCP) 02/20/2021 7:33 AM 02/21/2021 10:10 AM EST [facility] MICROSCOPIC DESCRIPTION Microscopic examination is performed and the findings corroborate the diagnosis. 02/21/2021 10:10 AM EST [facility] EMBEDDED IMAGES 02/21/2021 10:10 AM EST [facility] Tissue ASCENDING COLON STRUCTURE / Unknown 02/19/2021 2:14 PM EST 02/20/2021 6:36 AM EST us Kenan Kelly MD PATHOLOGY ORDERABLES Final Result [facility] [address] [place] [address] [facility] [address] [place] [address] documented in this encounter Visit Diagnoses Diagnosis Encounter for screening for malignant neoplasm of colon Special screening for malignant neoplasms, colon Diverticulosis of large intestine without perforation or abscess without bleeding Diverticulosis of colon (without mention of hemorrhage) Polyp of colon Benign neoplasm of colon documented in this encounter Care Teams Monogram Operator Relationship Specialty Start Date End Date Kris Ramos [address] [place] [facility] [address] [place] [address] PCP - General Family Medicine 10/17/13 documented as of this encounter
== END 2024-12-07 23:59 ==
LOC: LAB.DROPOF 12-09 08:15
PROVIDERS: PCP Nurse Practitioner; Visit Provider Nurse Practitioner
DX: D64.9 Anemia, unspecified (principal); E78.5 Hyperlipidemia, unspecified; E11.9 Type 2 diabetes mellitus without complications; E53.8 Deficiency of other specified B group vitamins
CPT/HCPCS: 80053; 80061; 82607; 83036; 85025